=== PATIENT | male | born 1960 | race Caucasian/White ===

== ENCOUNTER → 2017-04-19 | Outpatient (CLI) | payer BC ==
[2017-04-19 08:11] LABS: CH 30.7; CHCM 33.3; HCT 50.9 % (39.0-53.0); HDW 2.69; HGB 16.7 gm/dL (13.0-17.5); MCH 30.4 pg (25.0-35.0); MCHC 32.8 g/dL (31.0-37.0); MCV 92.7 fL (80.0-100.0); Mean Platelet Volume 7.4; RBC 5.49 m/uL (4.30-5.90); RDW 12.5 % (11.5-15.5); WBC 4.4 k/uL (3.8-10.6)
[2017-04-19 08:20] LABS: Anion Gap 9 mmol/L; Blood Urea Nitrogen 14 mg/dL (9-20); Calcium 9.5 mg/dL (8.4-10.2); Carbon Dioxide 28 mmol/L (22-30); Chloride 106 mmol/L (98-107); Glucose 95 mg/dL (74-99); Non-African American GFR(MDRD) >60 (>60 ml/min/1.73 sqM); Potassium 4.4 mmol/L (3.5-5.1); Sodium 143 mmol/L (137-145)
== END | disposition home or self-care (01) ==
LOC: LABWHC1 07:04
PROVIDERS: ATTEND Internal Medicine Clinical Cardiac Electrophysiology
DX: I48.0 Paroxysmal atrial fibrillation (principal)
CPT/HCPCS: 36415; 80048; 85027

== ENCOUNTER 2017-04-26 06:17 | Observation (INO) | payer BC ==
[2017-04-22 11:18] VITALS: BMI 29.0
[~2017-04-26 06:17] MED LIST: LACTATED RINGERS 1,000 ML IV SCH; ONDANSETRON 4 MG/2 ML VIAL IVP PRN; SODIUM CHLORIDE 0.9% 1,000 ML IV SCH
[2017-04-26] MEDS ORDERED: HEPARIN SODIUM,PORCINE/D5W PMX 25,000 UNIT in DEXTROSE/WATER 1 500ML.BAG IV ONE (07:30)
[2017-04-26] MEDS ORDERED: LIDOCAINE 1% INJ 10MG/ML (20 ML MDV) ONE (08:05)
[2017-04-26] MEDS ORDERED: ROCURONIUM BROMIDE 10 MG/ML 10 ML VIAL IV ONE (08:05)
[2017-04-26] MEDS ORDERED: HEPARIN SODIUM,PORCINE 10,000 UNIT/ML 1 ML VIAL ONE (08:05)
[2017-04-26] MEDS ORDERED: PROPOFOL 10 MG/ML 20 ML VIAL IV ONE (08:05)
[2017-04-26] MEDS ORDERED: ISOPROTERENOL 250 MCG/1.25 ML SYR IV ONE (08:05)
[2017-04-26] MEDS ORDERED: PROTAMINE SULFATE 10 MG/ML 5 ML VIAL IV ONE ×2 (08:05→13:12)
[2017-04-26] MEDS ORDERED: PHENYLEPHRINE-0.9% NACL SYG 1 MG/10 ML SYRINGE ONE (08:05)
[2017-04-26] MEDS ORDERED: MIDAZOLAM 2 MG/2 ML VIAL ONE (08:05)
[2017-04-26] MEDS ORDERED: HYDROmorphone (PF) 1 MG/ML ONE (08:05)
[2017-04-26] MEDS ORDERED: SUCCINYLCHOLINE CHLORIDE 100 MG/5 ML SYR IV ONE (08:05)
[2017-04-26] MEDS ORDERED: fentaNYL (PF) 50 MCG/ML 2 ML AMP ONE (08:05)
[2017-04-26] MEDS ORDERED: FUROSEMIDE 10 MG/ML 2 ML VIAL ONE (08:05)
[2017-04-26] MEDS ORDERED: LIDOCAINE 2% INJ 20 MG/ML SQ ONE (08:46)
[2017-04-26] MEDS ORDERED: HEPARIN SODIUM (1,000 UNIT/ML) 1,000 UNIT in SODIUM CHLORIDE 0.9% 1,000 ML IRRIGATION ONE (08:49)
[2017-04-26] MEDS ORDERED: SODIUM CHLORIDE 0.9% IRRIGATION ONE (12:50)
[2017-04-26] MEDS ORDERED: HEPARIN SODIUM IRRIGATION ONE (12:50)
[2017-04-26] MEDS ORDERED: SODIUM CHLORIDE 0.9% 500 ML IV ONE (13:04)
[2017-04-26] MEDS ORDERED: ACETAMINOPHEN IV (For NPO) 1,000 MG in EMPTY BAG 1 BAG IVPB ONE (13:13)
[2017-04-26] MEDS ORDERED: ACETAMINOPHEN TAB 325 MG TAB PO PRN (13:13)
[2017-04-26] MEDS ORDERED: SODIUM CHLORIDE 0.9% 250 ML IV ONE (13:58)
--- NOTE | 2017-04-26 14:11 | P.PCN ---
Preoperative Diagnosis: Successful termination of irregular atrial tachycardia/atrial fibrillation with a focal ablation in the ridge in between the left atrial appendage and the left- sided pulmonary veins PVI at an anterolateral level Atrial flutter ablation Procedures performed Hemodynamic monitoring and sampling via right femoral artery Intracardiac echocardiography Comprehensive diagnostic EP study with arrhythmia induction CS pacing and recording Programmed stimulation following Isuprel Intracardiac echocardiography Transseptal catheterization Pulmonary vein isolation 29675 Ablation of the right-sided atrial site, atrial flutter ablation, 58603 Ablation of discrete arrhythmia focus, 93634 Plan Continue Xarelto for 3 months
[2017-04-26] MEDS ORDERED: ACETAMINOPHEN IV (For NPO) 1,000 MG/100 ML VIAL IVPB ONE (14:34)
--- NOTE | 2017-04-26 14:53 | CE ---
CARDIAC ELECTROPHYSIOLOGY REPORT This is a 56-year-old, male patient, who has had an A. fib ablation and atrial flutter ablation greater than 5 years back. He came back with symptomatic atrial fibrillation with RVR and was started on verapamil. He is anticoagulated and then brought in for an AP study and ablation. Patient is brought to the EP lab in a fasting state. Written informed consent was obtained prior to the procedure. The procedure was performed under general anesthesia. Right and left groins were prepped and draped as per protocol. A 5-Algerian arterial sheath was placed in the femoral artery for hemodynamic monitoring and sampling. Heparin was started and the ECG is maintained above 300. Venous sheaths were placed in the right and left femoral veins and via these, diagnostic catheters were placed in the heart (high right atrial area. HIS bundle area, RV and coronary sinus.) The baseline measurements were as follows: sinus cycle length 728 milliseconds, NJ interval 136 milliseconds,. QRS 105 milliseconds, QT interval 393 milliseconds. The AH interval at baseline is 74 milliseconds, HV interval 48 milliseconds. Sinus node recovery times of 600, 500 and 400 milliseconds were 1575, 1514 and 1333 milliseconds. Corresponding corrected sinus node recovery times were mildly prolonged at a paced cycle length of 600 milliseconds. AV node Wenckebach block 380 milliseconds, VA Wenckebach block 510 milliseconds, ventricular VAERP 500/420 milliseconds/ AV node ERP 500/840 milliseconds, Atrial ERP 500/210 milliseconds. Burst stimulation of the coronary sinus 1350 milliseconds, started 250 milliseconds. No atrial fibrillation induced. Isuprel was started and burst stimulation was performed. The coronary sinus doing with catheter movements, atrial fibrillation was induced. This was a fairly organized atrial fibrillation, cycle length of about 190 to 200 milliseconds, similar to his clinical tachycardia which was also fairly organized atrial fibrillation with a cycle length of 200 milliseconds on a 12-lead ECG. First mapping of the intracardiac cardiography was performed and the left atrial mapping in the pulmonary vein map is made. Following that, a voltage superimposed on this anatomic path to clear to full three-dimensional left atrial and pulmonary vein structures. Deeper portions of the pulmonary veins had proven exit block along the antra. Recovery was noted in the following sites: 1. Anterior chelsea of the right-sided veins. 2. Posterior chelsea of the left-sided veins and along the anterior ridge, somewhat outside the pulmonary vein line between the appendage and the left-sided veins. Ablation was performed along the anterior chelsea and very fractionated electrograms are noted in anterior septum and RF ablation performed along the sites. Next, ablation is performed along the anterior chelsea of the left-sided veins right at the level of the chelsea in the ridge outside the pulmonary veins. Atrial fibrillation was terminated. This was in the ridge between the left atrial appendage and the left-sided veins. Following that, the veins were interrogated with pacing and RF ablation was performed along the anterior margin of the left-sided veins as well as in the carinal region and slightly below it also for the for the left-sided veins. The anterior veins interrogated and RF ablation was completed along the anterior antrum of the right-sided veins. No further atrial fibrillation was induced. Atrial flutter line was interrogated and the isthmus conduction and RF ablation was performed along the previous atrial flutter line and differential pacing was then bidirectional block was proven with differential pacing thereafter. A complete line of block was made along the cavotricuspid isthmus. Patient tolerated the procedure well without any acute complications. Intracardiac echocardiography revealed no evidence for any pericardial effusion. LV function was normal. Heparin was discontinued. All catheters were removed. Heparin was reversed and patient was transferred to telemetry. RESULT: 1. Diagnostic EP study revealing inducible atrial fibrillation with a focal area in the ridge between the left atrial appendage and the left-sided veins. outside both structures and RF ablation at this site resulted in termination of the tachycardia. 2. Isolation of the pulmonary veins at an antral level (right-sided veins anteriorly along the chelsea, left-sided veins posteriorly along the chelsea and the left-sided veins anteriorly off as well as well on the roof of the left superior pulmonary vein. 3. Atrial flutter ablation. PLAN: Continue Xarelto for 3 months. Discontinue verapamil. This is a successful procedure with induction of the clinical arrhythmia and termination of the arrhythmia with a focal ablation, followed by antral isolation of the pulmonary veins and atrial flutter ablation. MMODL / IJN: [id number] /
--- NOTE | 2017-04-26 14:59 | LTR ---
DATE OF SERVICE: 04/26/2017 RE: Silvino Carpenter Dear Phan; I had the pleasure of seeing Silvino Carpenter Jr. in electrophysiology followup. As you know, Silvino had undergone A. fib ablation almost 5 years back and he came in with recurrence of atrial fibrillation. Today, he underwent ablation of the atrial fibrillation. He actually had a focal atrial tachycardia (irregular) in the ridge between the pulmonary veins and the left atrial appendage. Following that, pulmonary vein isolation was performed. Segmentally in the areas of recovery as well as redo atrial flutter ablation areas of recovery. However his clinical arrhythmia was terminated, most importantly his clinical arrhythmia was terminated during the procedure. Hopefully, this will result once again in long-term success. He will continue Xarelto for a minimum of 3 months. Thank you for entrusting me with the care of your patient. Warm regards. Sincerely, MD LARRY Davis / TONI: [id number] /
[2017-04-26] MEDS ORDERED: ONDANSETRON 4 MG/2 ML VIAL IVP PRN (18:19)
[2017-04-26] MEDS: RIVAROXABAN 10 MG TAB PO SCH (18:27)
[2017-04-26] MEDS ORDERED: TEMAZEPAM 30 MG CAP PO PRN (20:23)
[2017-04-27 06:22] LABS: Anion Gap 5 mmol/L; Blood Urea Nitrogen 12 mg/dL (9-20); Calcium 9.2 mg/dL (8.4-10.2); Carbon Dioxide 30 mmol/L (22-30); Chloride 106 mmol/L (98-107); Glucose 109 mg/dL (74-99); Non-African American GFR(MDRD) >60 (>60 ml/min/1.73 sqM); Potassium 4.1 mmol/L (3.5-5.1); Sodium 141 mmol/L (137-145)
--- NOTE | 2017-04-27 08:38 | P.DS ---
Providers Date of admission: 04/26/17 20:23 Attending physician: Dallas Tracy Primary care physician: Severo [facility] Course: Patient is lying in bed comfortable. Last night he felt very jittery and funny after receiving Zofran but this morning he feels a lot better. He denies any chest discomfort no dizziness lightheadedness no palpitations. Twelve-lead ECG shows sinus rhythm with PACs On examination blood pressure is 97.4F pulse rate is in the 50s blood pressure 104/58 mmHg respirations are normal Heart sounds S1 and S2 are normal Sounds are clear no rhonchi no crackles Abdomen is soft nontender Extremities warm no edema Groins have healed well no hematoma no bruising Impression Paroxysmal symptomatic atrial fibrillation Status post successful ablation in termination of atrial fibrillation in the range in between the left atrial appendage and left-sided pulmonary veins Also, PVI and atrial flutter ablation Plan Continue Xarelto Discontinue verapamil Ambulate in the hallways today Oral fluids ad santana. Discharge home by 6 PM if stable and follow-up with Dr. An in 1-2 weeks Patient Condition at Discharge: Stable Plan - Discharge Summary Discharge Rx Participant: Yes New Discharge Prescriptions: Discontinued Verapamil HCl [Verelan Pm] 100 mg PO DAILY No Action Cholecalciferol [Vitamin D3] 2,000 unit PO DAILY Vitamin B Complex 1 cap PO DAILY Folic Acid 0.4 mg PO DAILY Aspirin [Adult Low Dose Aspirin EC] 81 mg PO DAILY Rosuvastatin [Crestor] 10 mg PO DAILY Rivaroxaban [Xarelto] 20 mg PO DAILY [place]-3 Fatty Acids/Fish Oil [Fish Oil 1,000 mg Softgel] 1 cap PO DAILY Multivitamin/Iron/Folic Acid [Centrum Adults Tablet] 1 tab PO DAILY Magnesium 200 mg PO DAILY Ubidecarenone [Co Q-10] 200 mg PO DAILY Discharge Medication List Aspirin [Adult Low Dose Aspirin EC] 81 mg PO DAILY 04/22/17 [History] Cholecalciferol [Vitamin D3] 2,000 unit PO DAILY 04/22/17 [History] Folic Acid 0.4 mg PO DAILY 04/22/17 [History] Magnesium 200 mg PO DAILY 04/22/17 [History] Multivitamin/Iron/Folic Acid [Centrum Adults Tablet] 1 tab PO DAILY 04/22/17 [ History] [place]-3 Fatty Acids/Fish Oil [Fish Oil 1,000 mg Softgel] 1 cap PO DAILY [History] Rivaroxaban [Xarelto] 20 mg PO DAILY 04/22/17 [History] Rosuvastatin [Crestor] 10 mg PO DAILY 04/22/17 [History] Vitamin B Complex 1 cap PO DAILY 04/22/17 [History] Ubidecarenone [Co Q-10] 200 mg PO DAILY 04/26/17 [History] Follow up Appointment(s)/Referral(s): Dallas Tracy MD [STAFF PHYSICIAN] - 05/11/17 3:00 pm Patient Instructions/Handouts: Cardiac Ablation (DC), Safe Use of Anticoagulants (DC) Activity/Diet/Wound Care/Special Instructions: Post EP study - Ablation instructions 1. Keep access sites dry for 2 days. 2. No heavy lifting or straining for 2 days. 3. Avoid bending the hips repeatedly for 2 days. 4. You may go up and down stairs slowly Call if the following is noted 1. Bleeding, increasing swelling or pain at the access sites. 2. Increasing chest discomfort, especially upon taking a deep breath. 3. Increasing shortness of breath, at rest or with exertion. 4. Undue cough / phlegm 5. Difficulty or pain while swallowing. 6. Pain or change in color in the extremities. 7. Fever, chills, rigors. 8. Increasing headache or neurologic symptoms. 9. Dizziness, fainting, palpitations Continue Xarelto for at least 3 months. Stop verapamil. Follow with Dr. An in 1-2 weeks Discharge Disposition: HOME SELF-CARE
[2017-04-27] MEDS ORDERED: ATORVASTATIN 20 MG TAB PO SCH (09:00)
[2017-04-27] MEDS ORDERED: ASPIRIN 81 MG PO SCH (09:00)
[2017-04-27 11:39] VITALS: TEMP 97.9
[2017-04-27] MEDS: RIVAROXABAN 10 MG TAB PO SCH (16:47)
[2017-04-27 17:27] VITALS: BP 113/72; PULSE 64; RESP 18
== END 2017-04-27 18:08 | disposition home or self-care (01) ==
LOC: CATHEP 06:17 → 6SEL 13:05 → CATHEP 20:23 → 6SEL 20:23
PROVIDERS: ADMIT Internal Medicine Clinical Cardiac Electrophysiology; ATTEND Internal Medicine Clinical Cardiac Electrophysiology
DX: I48.0 Paroxysmal atrial fibrillation (principal); I48.92 Unspecified atrial flutter; I10 Essential (primary) hypertension; E78.5 Hyperlipidemia, unspecified; Z79.82 Long term (current) use of aspirin; Z79.01 Long term (current) use of anticoagulants; Z79.899 Other long term (current) drug therapy; Z86.79 Personal history of other diseases of the circulatory system
CPT/HCPCS: 93623; 93662; 93613; 93655; 93656; 85347; 80048; G0378 ×2; C1769 ×4; C1894 ×3; C1730 ×3; C1759; C1893; C1732; J2001 ×2; J2250; J2720; J1644 ×3; J1940; J2405; J3010; J1170; J0131; J2370; J0330; J2704

== ENCOUNTER 2017-04-29 06:04 | Emergency (ER) | payer BC ==
--- NOTE | 2017-04-29 06:33 | ED ---
General Adult HPI - General Source: patient, RN notes reviewed, old records reviewed Mode of arrival: ambulatory Limitations: no limitations <Tristin Bishop - Last Filed: 04/29/17 06:32> <Rupesh Mills - Last Filed: 04/29/17 08:52> - General Chief complaint: Chest Pain Stated complaint: Chest Pain Time Seen by Provider: 04/29/17 06:22 - History of Present Illness Initial comments: This is a 48-year-old male to the ER for evaluation of chest pain started. Patient has history of high cholesterol atrial fibrillation. Patient states he has worsening pain with exertion worsening pain with activity. Symptoms since Tuesday episodic but now worse. Patient denies fever denies nausea vomiting denies cough or congestion. No travel history no sick contacts. (Tristin Bishop) - Related Data Home Medications Medication Instructions Recorded Confirmed Aspirin [Adult Low Dose Aspirin EC] 81 mg PO DAILY 04/22/17 04/29/17 Cholecalciferol [Vitamin D3] 2,000 unit PO DAILY 04/22/17 04/29/17 Folic Acid 0.4 mg PO DAILY 04/22/17 04/29/17 Magnesium 200 mg PO DAILY 04/22/17 04/29/17 Multivitamin/Iron/Folic Acid 1 tab PO DAILY 04/22/17 04/29/17 [Centrum Adults Tablet] [place]-3 Fatty Acids/Fish Oil [Fish 1 cap PO DAILY 04/22/17 04/29/17 Oil 1,000 mg Softgel] Rivaroxaban [Xarelto] 20 mg PO DAILY 04/22/17 04/29/17 Rosuvastatin [Crestor] 10 mg PO DAILY 04/22/17 04/29/17 Vitamin B Complex 1 cap PO DAILY 04/22/17 04/29/17 Ubidecarenone [Co Q-10] 200 mg PO DAILY 04/26/17 04/29/17 Previous Rx's Medication Instructions Recorded Colchicine [Colcrys] 0.6 mg PO BID #6 tablet 04/29/17 Famotidine [Pepcid] 20 mg PO DAILY #30 tablet 04/29/17 Allergies Allergy/AdvReac Type Severity Reaction Status Date / Time No Known Allergies Allergy Verified 04/29/17 07:44 Review of Systems ROS Other: All systems not noted in ROS Statement are negative. <Tyron Bishopophpolina Barber - Last Filed: 04/29/17 06:32> ROS Other: All systems not noted in ROS Statement are negative. <Rupesh Mills - Last Filed: 04/29/17 08:52> ROS Statement: Those systems with pertinent positive or pertinent negative responses have been documented in the HPI. Past Medical History Past Medical History: Atrial Fibrillation, Hyperlipidemia History of Any Multi-Drug Resistant Organisms: None Reported Past Surgical History: Cardiac Ablation, Hernia Repair Past Psychological History: No Psychological Hx Reported Smoking Status: Never smoker Past Alcohol Use History: Occasional Past Drug Use History: None Reported <Tristin Bishop - Last Filed: 04/29/17 06:32> General Exam Limitations: no limitations General appearance: alert, in no apparent distress Head exam: Present: atraumatic, normocephalic, normal inspection Eye exam: Present: normal appearance, PERRL, EOMI. Absent: scleral icterus, conjunctival injection, periorbital swelling ENT exam: Present: normal exam, mucous membranes moist Neck exam: Present: normal inspection. Absent: tenderness, meningismus, lymphadenopathy Respiratory exam: Present: normal lung sounds bilaterally. Absent: respiratory distress, wheezes, rales, rhonchi, stridor Cardiovascular Exam: Present: regular rate, normal rhythm, normal heart sounds. Absent: systolic murmur, diastolic murmur, rubs, gallop, clicks GI/Abdominal exam: Present: soft, normal bowel sounds. Absent: distended, tenderness, guarding, rebound, rigid Extremities exam: Present: normal inspection, full ROM, normal capillary refill. Absent: tenderness, pedal edema, joint swelling, calf tenderness Back exam: Present: normal inspection Neurological exam: Present: alert, oriented X3, CN II-XII intact Psychiatric exam: Present: normal affect, normal mood Skin exam: Present: warm, dry, intact, normal color. Absent: rash <Tristin Bishop - Last Filed: 04/29/17 06:32> Vital Signs 04/29/17 04/29/17 06:06 07:46 Temperature 98.9 F Pulse Rate 76 63 Respiratory 16 15 Rate Blood Pressure 153/78 122/63 O2 Sat by Pulse 97 95 Oximetry EKG Findings - EKG Comments: EKG Findings:: EKG has sinus rhythm rate of 77, CA 152, QRS 100, QTc 466 <Tristin Bishop - Last Filed: 04/29/17 06:32> Medical Decision Making <Tristin Bishop - Last Filed: 04/29/17 06:32> - Lab Data Result diagrams: 04/29/17 06:00 04/29/17 06:00 <Rupesh Mills - Last Filed: 04/29/17 08:52> - Medical Decision Making 48-year-old male presenting with chest discomfort after cardiac ablation. Patient has a normal sinus rhythm. EKG is nonischemic. Patient is symptom- free at the time my evaluation. Patient was signed out to me awaiting laboratory studies. Dr. Dasilva within normal limits. Mild elevation in troponin secondary to ablation. Case is discussed with Dr. Tracy, he feels patient is stable for discharge at this time. Patient has an appointment and will follow up as an outpatient. He is prescribed colchicine and Pepcid. (Rupesh Mills) - Lab Data Lab Results 04/29/17 04/29/17 04/29/17 Range/Units 06:00 06:00 06:00 WBC 9.7 (3.8-10.6) k/uL RBC 5.45 (4.30-5.90) m/uL Hgb 16.5 (13.0-17.5) gm/dL Hct 49.4 (39.0-53.0) % MCV 90.6 (80.0-100.0) fL MCH 30.3 (25.0-35.0) pg MCHC 33.4 (31.0-37.0) g/dL RDW 13.5 (11.5-15.5) % Plt Count 201 (150-450) k/uL Neutrophils % 82 % Lymphocytes % 10 % Monocytes % 6 % Eosinophils % 2 % Basophils % 0 % Neutrophils # 7.9 H (1.3-7.7) k/uL Lymphocytes # 1.0 (1.0-4.8) k/uL Monocytes # 0.6 (0-1.0) k/uL Eosinophils # 0.2 (0-0.7) k/uL Basophils # 0.0 (0-0.2) k/uL PT (9.0-12.0) sec INR (<1.2) APTT (22.0-30.0) sec Sodium 141 (137-145) mmol/L Potassium 4.3 (3.5-5.1) mmol/L Chloride 107 (98-107) mmol/L Carbon Dioxide 24 (22-30) mmol/L Anion Gap 10 mmol/L BUN 16 (9-20) mg/dL Creatinine 1.00 (0.66-1.25) mg/dL Est GFR (MDRD) Af Amer >60 (>60 ml/min/1.73 sqM) Est GFR (MDRD) Non-Af >60 (>60 ml/min/1.73 sqM) Glucose 104 H (74-99) mg/dL Calcium 9.3 (8.4-10.2) mg/dL Magnesium 1.7 (1.6-2.3) mg/dL Total Bilirubin 0.8 (0.2-1.3) mg/dL AST 28 (17-59) U/L ALT 37 (21-72) U/L Alkaline Phosphatase 37 L (38-126) U/L Total Creatine Kinase 49 L (55-170) U/L CK-MB (CK-2) 0.6 (0.0-2.4) ng/mL CK-MB (CK-2) Rel Index 1.2 Troponin I 0.257 H* (0.000-0.034) ng/mL Total Protein 6.7 (6.3-8.2) g/dL Albumin 4.1 (3.5-5.0) g/dL Lipase 32 (23-300) U/L 04/29/17 Range/Units 06:00 WBC (3.8-10.6) k/uL RBC (4.30-5.90) m/uL Hgb (13.0-17.5) gm/dL Hct (39.0-53.0) % MCV (80.0-100.0) fL MCH (25.0-35.0) pg MCHC (31.0-37.0) g/dL RDW (11.5-15.5) % Plt Count (150-450) k/uL Neutrophils % % Lymphocytes % % Monocytes % % Eosinophils % % Basophils % % Neutrophils # (1.3-7.7) k/uL Lymphocytes # (1.0-4.8) k/uL Monocytes # (0-1.0) k/uL Eosinophils # (0-0.7) k/uL Basophils # (0-0.2) k/uL PT 11.5 (9.0-12.0) sec INR 1.2 H (<1.2) APTT 27.2 (22.0-30.0) sec Sodium (137-145) mmol/L Potassium (3.5-5.1) mmol/L Chloride (98-107) mmol/L Carbon Dioxide (22-30) mmol/L Anion Gap mmol/L BUN (9-20) mg/dL Creatinine (0.66-1.25) mg/dL Est GFR (MDRD) Af Amer (>60 ml/min/1.73 sqM) Est GFR (MDRD) Non-Af (>60 ml/min/1.73 sqM) Glucose (74-99) mg/dL Calcium (8.4-10.2) mg/dL Magnesium (1.6-2.3) mg/dL Total Bilirubin (0.2-1.3) mg/dL AST (17-59) U/L ALT (21-72) U/L Alkaline Phosphatase (38-126) U/L Total Creatine Kinase (55-170) U/L CK-MB (CK-2) (0.0-2.4) ng/mL CK-MB (CK-2) Rel Index Troponin I (0.000-0.034) ng/mL Total Protein (6.3-8.2) g/dL Albumin (3.5-5.0) g/dL Lipase (23-300) U/L Disposition <Tristin Bishop - Last Filed: 04/29/17 06:32> Time of Disposition: 08:51 <Rupesh Mills - Last Filed: 04/29/17 08:52> Clinical Impression: Chest pain Disposition: HOME SELF-CARE Condition: Good Instructions: Chest Pain (ED) Prescriptions: Colchicine [Colcrys] 0.6 mg PO BID #6 tablet Famotidine [Pepcid] 20 mg PO DAILY #30 tablet Referrals: Severo Kong MD [Primary Care Provider] - 1-2 days Dallas Tracy MD [STAFF PHYSICIAN] - 1-2 days
[2017-04-29 06:41] LABS: Basophils % (A) 0 %; CH 30.7; CHCM 34.1; Eosinophils # (A) 0.2 k/uL (0-0.7); Eosinophils % (A) 2 %; HCT 49.4 % (39.0-53.0); HDW 2.53; HGB 16.5 gm/dL (13.0-17.5); Luc # (Auto) 0.07; Luc % (Auto) 1; Lymphocytes % (A) 10 %; MCH 30.3 pg (25.0-35.0); MCHC 33.4 g/dL (31.0-37.0); MCV 90.6 fL (80.0-100.0); Mean Platelet Volume 7.8; Monocytes # (A) 0.6 k/uL (0-1.0); Monocytes % (A) 6 %; Neutrophils # (A) 7.9 k/uL (1.3-7.7); Neutrophils % (A) 82 %; RBC 5.45 m/uL (4.30-5.90); RDW 13.5 % (11.5-15.5); WBC 9.7 k/uL (3.8-10.6); WBC (Perox) 9.51
[2017-04-29 06:43] LABS: INR 1.2 (<1.2); Partial Thromboplastin Time 27.2 sec (22.0-30.0); Prothrombin Time 11.5 sec (9.0-12.0)
[2017-04-29 06:56] LABS: ALT 37 U/L (21-72); AST 28 U/L (17-59); Alkaline Phosphatase 37 U/L (38-126); Anion Gap 10 mmol/L; Blood Urea Nitrogen 16 mg/dL (9-20); Calcium 9.3 mg/dL (8.4-10.2); Carbon Dioxide 24 mmol/L (22-30); Chloride 107 mmol/L (98-107); Glucose 104 mg/dL (74-99); Magnesium 1.7 mg/dL (1.6-2.3); Non-African American GFR(MDRD) >60 (>60 ml/min/1.73 sqM); Potassium 4.3 mmol/L (3.5-5.1); Sodium 141 mmol/L (137-145); Total Bilirubin 0.8 mg/dL (0.2-1.3); Total Protein 6.7 g/dL (6.3-8.2)
--- NOTE | 2017-04-29 06:56 | XR ---
EXAM: XR Chest, 2 Views. CLINICAL HISTORY: Reason: Chest Pain TECHNIQUE: Frontal and lateral views of the chest. COMPARISON: No relevant prior studies available. FINDINGS: Lungs: Unremarkable. No consolidation. Pleural spaces: Unremarkable. No pneumothorax. Heart: Unremarkable. No cardiomegaly. Mediastinum: Unremarkable. Bones: Unremarkable. No acute fracture. IMPRESSION: No acute findings in the chest.
[2017-04-29 07:18] LABS: Creatine Kinase MB 0.6 ng/mL (0.0-2.4)
[2017-04-29 07:24] LABS: Troponin I 0.257 ng/mL (0.000-0.034)
[2017-04-29 09:07] VITALS: BP 142/91; PULSE 71; RESP 16; TEMP 98
== END 2017-04-29 09:04 | disposition home or self-care (01) ==
LOC: EC 06:04
DX: R07.89 Other chest pain (principal); I48.91 Unspecified atrial fibrillation; E78.5 Hyperlipidemia, unspecified; Z79.01 Long term (current) use of anticoagulants; Z79.82 Long term (current) use of aspirin; Z79.899 Other long term (current) drug therapy
CPT/HCPCS: 36415; 71020; 80053; 82550; 82553; 83690; 83735; 84484; 85025; 85610; 85730; 93005; 99285

== ENCOUNTER 2018-12-04 07:57 | Emergency (ER) | payer BC ==
[2018-12-04 08:02] VITALS: TEMP 98.1
[2018-12-04] MEDS ORDERED: DIAZEPAM 5 MG/ML 2 ML INJ IVP STA (08:17)
[2018-12-04] MEDS ORDERED: MECLIZINE 25 MG TAB PO STA (08:17)
--- NOTE | 2018-12-04 08:24 | ED ---
General Adult HPI - General Chief complaint: Dizziness Stated complaint: Dizziness/nausea Time Seen by Provider: 12/04/18 08:00 Source: patient, RN notes reviewed Mode of arrival: wheelchair Limitations: no limitations - History of Present Illness Initial comments: This is an 58-year-old male who presents emergency Department complaining of dizziness. Patient states he rolled over but this morning when he sat up and everything was moving and spinning. Patient states became nauseated but did not vomit. Patient states he decided to get up and move around and symptoms persisted so he decided come the emergency department. Patient states he has a history of A. fib per patient states he has no history of vertigo or similar dizziness per patient states she has chronic tinnitus. Patient denies any increase in the tinnitus or change in the tinnitus. Patient denies any change in his hearing recently. Patient denies any chest pain or palpitations. Patient denies shortness of breath or difficulty breathing. Patient denies abdominal pain. Patient denies any recent fever chills or cough. - Related Data Home Medications Medication Instructions Recorded Confirmed Aspirin [Adult Low Dose Aspirin EC] 81 mg PO HS 04/22/17 12/04/18 Rosuvastatin [Crestor] 10 mg PO HS 04/22/17 12/04/18 Verapamil HCl [Verelan Pm] 100 mg PO HS 12/04/18 12/04/18 Previous Rx's Medication Instructions Recorded Meclizine [Antivert] 25 mg PO TID #20 tab 12/04/18 Allergies Allergy/AdvReac Type Severity Reaction Status Date / Time No Known Allergies Allergy Verified 12/04/18 08:40 Review of Systems ROS Statement: Those systems with pertinent positive or pertinent negative responses have been documented in the HPI. ROS Other: All systems not noted in ROS Statement are negative. Past Medical History Past Medical History: Atrial Fibrillation, Hyperlipidemia History of Any Multi-Drug Resistant Organisms: None Reported Past Surgical History: Cardiac Ablation, Hernia Repair Past Psychological History: No Psychological Hx Reported Smoking Status: Never smoker Past Alcohol Use History: Occasional Past Drug Use History: None Reported General Exam - General Exam Comments Initial Comments: GENERAL: Patient is well-developed and well-nourished. Patient is nontoxic and well- hydrated and is in mild distress. ENT: Neck is soft and supple. No significant lymphadenopathy is noted. Oropharynx is clear. Moist mucous membranes. EYES: The sclera were anicteric and conjunctiva were pink and moist. Extraocular movements were intact and pupils were equal round and reactive to light. Eyelids were unremarkable. PULMONARY: Unlabored respirations. Good breath sounds bilaterally. No audible rales rhonchi or wheezing was noted. CARDIOVASCULAR: There is a regular rate and rhythm without any murmurs gallops or rubs. ABDOMEN: Soft and nontender with normal bowel sounds. No palpable organomegaly was noted. There is no palpable pulsatile mass. SKIN: Skin is clear with no lesions or rashes and otherwise unremarkable. NEUROLOGIC: Patient is alert and oriented x3. Cranial nerves II through XII are grossly intact. Motor and sensory are also intact. Normal speech, volume and content. Symmetrical smile. Finger to nose testing is normal. MUSCULOSKELETAL: Normal extremities with adequate strength and full range of motion. LYMPHATICS: No significant lymphadenopathy is noted PSYCHIATRIC: Normal psychiatric evaluation. Limitations: no limitations Course Vital Signs 12/04/18 12/04/18 12/04/18 08:00 08:30 09:00 Temperature 98.1 F Pulse Rate 50 L 52 L 47 L Respiratory 16 10 L Rate Blood Pressure 156/74 143/81 129/79 O2 Sat by Pulse 97 94 L Oximetry Medical Decision Making - Medical Decision Making EKG shows sinus bradycardia 54 bpm VA interval is 172 QRS is 102 QT intervals 450 QTC is 426. EKG shows no ST segment elevation or depression. CT of the brain shows no acute abnormality. Chest x-ray shows no acute normalities. I will begin to reevaluate the patient received his medication he was feeling somewhat better. Patient has no other symptoms at this time other than slight dizziness. - Lab Data Result diagrams: 12/04/18 08:28 12/04/18 08:28 Lab Results 12/04/18 12/04/18 12/04/18 Range/Units 08:28 08:28 08:28 WBC 4.1 (3.8-10.6) k/uL RBC 5.24 (4.30-5.90) m/uL Hgb 15.6 (13.0-17.5) gm/dL Hct 46.7 (39.0-53.0) % MCV 89.0 (80.0-100.0) fL MCH 29.7 (25.0-35.0) pg MCHC 33.4 (31.0-37.0) g/dL RDW 12.9 (11.5-15.5) % Plt Count 205 (150-450) k/uL Neutrophils % 69 % Lymphocytes % 20 % Monocytes % 7 % Eosinophils % 3 % Basophils % 0 % Neutrophils # 2.9 (1.3-7.7) k/uL Lymphocytes # 0.8 L (1.0-4.8) k/uL Monocytes # 0.3 (0-1.0) k/uL Eosinophils # 0.1 (0-0.7) k/uL Basophils # 0.0 (0-0.2) k/uL PT 10.9 (9.0-12.0) sec INR 1.0 (<1.2) APTT 26.1 (22.0-30.0) sec Sodium 141 (137-145) mmol/L Potassium 4.2 (3.5-5.1) mmol/L Chloride 107 (98-107) mmol/L Carbon Dioxide 26 (22-30) mmol/L Anion Gap 8 mmol/L BUN 12 (9-20) mg/dL Creatinine 0.79 (0.66-1.25) mg/dL Est GFR (CKD-EPI)AfAm >90 (>60 ml/min/1.73 sqM) Est GFR (CKD-EPI)NonAf >90 (>60 ml/min/1.73 sqM) Glucose 107 H (74-99) mg/dL Calcium 9.4 (8.4-10.2) mg/dL Magnesium 1.9 (1.6-2.3) mg/dL Total Bilirubin 0.9 (0.2-1.3) mg/dL AST 18 (17-59) U/L ALT 21 (21-72) U/L Alkaline Phosphatase 34 L (38-126) U/L Troponin I (0.000-0.034) ng/mL Total Protein 6.4 (6.3-8.2) g/dL Albumin 4.2 (3.5-5.0) g/dL 12/04/18 Range/Units 08:28 WBC (3.8-10.6) k/uL RBC (4.30-5.90) m/uL Hgb (13.0-17.5) gm/dL Hct (39.0-53.0) % MCV (80.0-100.0) fL MCH (25.0-35.0) pg MCHC (31.0-37.0) g/dL RDW (11.5-15.5) % Plt Count (150-450) k/uL Neutrophils % % Lymphocytes % % Monocytes % % Eosinophils % % Basophils % % Neutrophils # (1.3-7.7) k/uL Lymphocytes # (1.0-4.8) k/uL Monocytes # (0-1.0) k/uL Eosinophils # (0-0.7) k/uL Basophils # (0-0.2) k/uL PT (9.0-12.0) sec INR (<1.2) APTT (22.0-30.0) sec Sodium (137-145) mmol/L Potassium (3.5-5.1) mmol/L Chloride (98-107) mmol/L Carbon Dioxide (22-30) mmol/L Anion Gap mmol/L BUN (9-20) mg/dL Creatinine (0.66-1.25) mg/dL Est GFR (CKD-EPI)AfAm (>60 ml/min/1.73 sqM) Est GFR (CKD-EPI)NonAf (>60 ml/min/1.73 sqM) Glucose (74-99) mg/dL Calcium (8.4-10.2) mg/dL Magnesium (1.6-2.3) mg/dL Total Bilirubin (0.2-1.3) mg/dL AST (17-59) U/L ALT (21-72) U/L Alkaline Phosphatase (38-126) U/L Troponin I <0.012 (0.000-0.034) ng/mL Total Protein (6.3-8.2) g/dL Albumin (3.5-5.0) g/dL Disposition Clinical Impression: Vertigo Disposition: HOME SELF-CARE Instructions (If sedation given, give patient instructions): Vertigo (ED) Prescriptions: Meclizine [Antivert] 25 mg PO TID #20 tab Is patient prescribed a controlled substance at d/c from ED?: No Referrals: Severo Kong MD [Primary Care Provider] - 1-2 days Time of Disposition: 09:25
[2018-12-04 08:38] LABS: Basophils % (A) 0 %; Eosinophils # (A) 0.1 k/uL (0-0.7); Eosinophils % (A) 3 %; HCT 46.7 % (39.0-53.0); HGB 15.6 gm/dL (13.0-17.5); Lymphocytes # (A) 0.8 k/uL (1.0-4.8); Lymphocytes % (A) 20 %; MCH 29.7 pg (25.0-35.0); MCHC 33.4 g/dL (31.0-37.0); Mean Platelet Volume 7.2; Monocytes # (A) 0.3 k/uL (0-1.0); Monocytes % (A) 7 %; Neutrophils # (A) 2.9 k/uL (1.3-7.7); Neutrophils % (A) 69 %; Platelet Count 205 k/uL (150-450); RBC 5.24 m/uL (4.30-5.90); RDW 12.9 % (11.5-15.5); WBC 4.1 k/uL (3.8-10.6)
[2018-12-04 08:46] VITALS: RESP 10
[2018-12-04 08:49] LABS: Partial Thromboplastin Time 26.1 sec (22.0-30.0); Prothrombin Time 10.9 sec (9.0-12.0)
[2018-12-04 08:54] LABS: ALT 21 U/L (21-72); AST 18 U/L (17-59); African American GFR (CKD) >90 (>60 ml/min/1.73 sqM); Albumin 4.2 g/dL (3.5-5.0); Alkaline Phosphatase 34 U/L (38-126); Anion Gap 8 mmol/L; Blood Urea Nitrogen 12 mg/dL (9-20); Calcium 9.4 mg/dL (8.4-10.2); Carbon Dioxide 26 mmol/L (22-30); Chloride 107 mmol/L (98-107); Glucose 107 mg/dL (74-99); Magnesium 1.9 mg/dL (1.6-2.3); Potassium 4.2 mmol/L (3.5-5.1); Sodium 141 mmol/L (137-145); Total Bilirubin 0.9 mg/dL (0.2-1.3); Total Protein 6.4 g/dL (6.3-8.2)
[2018-12-04 09:04] VITALS: BP 129/79; PULSE 47
--- NOTE | 2018-12-04 09:05 | CT ---
EXAMINATION TYPE: CT brain wo con DATE OF EXAM: 12/04/2018 COMPARISON: None HISTORY: 58-year-old male Dizziness. Nausea and Pain TECHNIQUE: Examination was done in axial plane without intravenous contrast. Coronal and sagittal r econstructions performed. CT DLP: 1099.4 mGycm Automated exposure control for dose reduction was used. FINDINGS: There is no evidence of acute intracranial hemorrhage, acute ischemic changes, mass, mass-effect, or extra-axial fluid collection. There is no effacement of cerebral sulci or basal subarachnoid cister ns. There is no hydrocephalus. There is no midline shift. Parra-white matter distinction is preserv ed. Small hypodensity left basal ganglia region. 1.6 cm polyp or mucosal retention cyst along the floor of right maxillary sinus. Orbits and globes ar e intact. Mastoid air cells well pneumatized. Small amount of cerumen in the left greater than right external auditory canals. IMPRESSION: Small hypodensity left basal ganglia suggests a remote lacunar infarct or prominent perivascular spac e. No acute intracranial abnormality seen.
--- NOTE | 2018-12-04 09:07 | XR ---
EXAMINATION TYPE: XR chest 2V DATE OF EXAM: 12/04/2018 COMPARISON: 04/29/2017 HISTORY: Dizziness with history of atrial fibrillation TECHNIQUE: Frontal and lateral views of the chest are obtained. FINDINGS: There is no focal air space opacity, pleural effusion, or pneumothorax seen. The cardiac silhouette size is enlarged but stable from the prior. The osseous structures are intact. Small ant erior osteophytes are present of the thoracic spine. IMPRESSION: Stable enlarged cardiomediastinal silhouette. No acute cardiopulmonary process.
== END 2018-12-04 09:46 | disposition home or self-care (01) ==
LOC: EC 07:57
DX: R42 Dizziness and giddiness (principal); R11.0 Nausea; R00.1 Bradycardia, unspecified; I48.91 Unspecified atrial fibrillation; E78.5 Hyperlipidemia, unspecified; Z79.82 Long term (current) use of aspirin; Z79.899 Other long term (current) drug therapy
CPT/HCPCS: 36415; 93005; 80053; 83735; 84484; 85025; 85610; 85730; 71046; 70450; 99284; 96374; J3360

== ENCOUNTER 2019-02-21 06:27 | Day surgery (SDC) | payer BC ==
[2019-02-16 12:55] VITALS: BMI 28.8
[~2019-02-21 06:27] MED LIST changes: +ALPRAZolam 0.25 MG TAB PO PRN; +ALPRAZolam 0.5 MG TAB PO PRN; +ASPIRIN 325 MG TAB PO STA; +ATORVASTATIN 80 MG TAB PO STA; -LACTATED RINGERS 1,000 ML IV SCH; +NITROGLYCERIN SL TABS 0.4 MG TAB SUBLINGUAL PRN; -ONDANSETRON 4 MG/2 ML VIAL IVP PRN; -SODIUM CHLORIDE 0.9% 1,000 ML IV SCH; +SODIUM CHLORIDE 0.9% 1,000 ML in EMPTY BAG 1 BAG IV ONE
[2019-02-21] MEDS ORDERED: SODIUM CHLORIDE 0.9% 1,000 ML IV ONE (07:05)
[2019-02-21 07:18] VITALS: RESP 16; TEMP 98
[2019-02-21] MEDS ORDERED: fentaNYL (PF) 50 MCG/ML 2 ML AMP ONE (07:30)
[2019-02-21] MEDS: MIDAZOLAM (PF) 2 MG/2 ML VIAL IV ONE ×2 (07:41→07:49)
[2019-02-21] MEDS ORDERED: LIDOCAINE 1% INJ 10MG/ML (20 ML MDV) SQ ONE (07:43)
[2019-02-21] MEDS ORDERED: fentaNYL (PF) 50 MCG/ML 2 ML AMP IV ONE (07:48)
[2019-02-21] MEDS ORDERED: METOPROLOL TARTRATE 5 MG/5 ML VIAL IVP ONE ×2 (07:50→07:52)
[2019-02-21] MEDS ORDERED: IOPAMIDOL-370 125ML BTL INJ ONE (08:03)
[2019-02-21] MEDS ORDERED: RX INFO: IV CONTRAST WAS GIVEN 1 EACH MISC MISCELLANE PRN (08:04)
[2019-02-21] MEDS ORDERED: FLECAINIDE 50 MG TAB PO STA (08:13)
[2019-02-21] MEDS ORDERED: SODIUM CHLORIDE 0.9% 1,000 ML IV SCH (08:15)
--- NOTE | 2019-02-21 08:49 | CC ---
CARDIAC CATHETERIZATION REPORT INDICATION: This is a 58-year-old gentleman with history of paroxysmal atrial fibrillation, status post prior ablation who presented to Dr. Tracy with symptoms of unstable angina and was referred to me for cardiac catheterization. The patient had been explained of risks, benefits and alternatives, understood and accepted. PROCEDURE NOTE: After obtaining informed consent, left heart catheterization and coronary angiogram were performed via the right femoral artery using standard Evelyn catheters. The patient tolerated the procedure well without any obvious immediate complications. The patient was in atrial fibrillation with poorly controlled ventricular rate prior to cardiac cath. When he first arrived for cardiac catheterization, he apparently was in sinus rhythm and went into atrial fibrillation prior to the procedure. I had to give him 5 mg of intravenous Lopressor to control his heart rate. At the end of the procedure, he remains in atrial fibrillation with controlled ventricular rate. He received moderate conscious sedation and total sedation time was 19 minutes. A femoral angiogram was performed and Angio-Seal was deployed for hemostasis. FINDINGS: 1. HEMODYNAMICS: Left ventricular end-diastolic pressure is 8 mm. There is no significant gradient across the aortic valve. 2. LEFT VENTRICULOGRAM: Left ventriculogram is not performed. 3. ANGIOGRAPHIC DATA: Left Main Coronary Artery: Left main coronary artery is a normal-sized vessel and is free of stenosis. It divides into left anterior descending coronary artery, ramus intermedius and a small circumflex coronary artery. LAD and its branches, ramus intermedius and circumflex are free of significant stenosis. Right coronary artery is a large dominant vessel and is free of significant disease. CONCLUSIONS: 1. Normal coronary arteries. 2. Normal left ventricular end-diastolic pressures. PLAN: Patient's chest pain is not related to underlying ischemic heart disease. It is possible that patient is having paroxysmal episodes of atrial fibrillation, which is the reason for his symptoms. The patient is currently not on anticoagulant and he had been having on and off episodes of atrial fibrillation since his ablation. He will probably benefit from another attempted ablation or being started on rhythm suppressive therapy. I am going to let his primary script girl who is an munitions factory worker to address these issues. MMODL / IJN: [id number] /
--- NOTE | 2019-02-21 08:55 | LTR ---
February 21, 2019 Re: Silvino Carpenter Dear Dr. Kong: I performed cardiac catheterization on Silvino Carpenter. A detailed catheterization note is enclosed for your records. In brief, the patient has normal coronary arteries and his chest discomfort is not related to ischemic heart disease. Thank you for giving me the privilege to participate in the care of this pleasant gentleman. Sincerely, MD LARRY Manning / TONI: [id number] /
[2019-02-21] MEDS ORDERED: METOPROLOL SUCCINATE (ER) 25 MG TAB.ER.24H PO STA (11:17)
[2019-02-21] MEDS ORDERED: DILTIAZEM DRIP BOLUS FROM BAG 1 MG SOLN IV ONE (12:48)
[2019-02-21] MEDS ORDERED: DILTIAZEM 125 MG in SODIUM CHLORIDE 0.9% 100 ML IV SCH (13:00)
[2019-02-21 15:52] VITALS: BP 112/77; PULSE 69
== END 2019-02-21 15:12 | disposition home or self-care (01) ==
LOC: CATHCVL 06:27
PROVIDERS: ATTEND Internal Medicine Cardiovascular Disease
DX: I20.0 Unstable angina (principal); I48.0 Paroxysmal atrial fibrillation; R06.02 Shortness of breath; I10 Essential (primary) hypertension; E78.5 Hyperlipidemia, unspecified; Z82.49 Family history of ischemic heart disease and other diseases of the circulatory system; Z79.82 Long term (current) use of aspirin; Z79.899 Other long term (current) drug therapy
CPT/HCPCS: 93458; C1760; C1894; C1769; J2001; J3010; Q9967; J2250

== ENCOUNTER 2019-02-21 17:22 | Observation (INO) | payer BC ==
[2019-02-21] MEDS ORDERED: SODIUM CHLORIDE 0.9% 1,000 ML IV STA (17:31)
[2019-02-21] MEDS ORDERED: DILTIAZEM DRIP BOLUS FROM BAG 1 MG SOLN IV ONE ×2 (17:31→19:14)
--- NOTE | 2019-02-21 17:37 | ED ---
Arrhythmia/Palpitations HPI - General Chief Complaint: Arrhythmia/Palpitations Stated Complaint: High Heart rate Time Seen by Provider: 02/21/19 17:30 Source: patient Mode of arrival: wheelchair Limitations: no limitations - History of Present Illness Initial Comments: This is a 4-year-old male the ER for evaluation presents today for evaluation of irregular heart rate history of H of fibrillation tachycardia dizziness lightheadedness and not feeling well. Patient heart catheterization today secondary to increased stress and chest pain in his life, per patient states heart cath was negative. But he did develop atrial fibrillation the postop myron od. Patient was given Cardizem is improved he was discharged home. Symptoms returned will patient was home, currently denying chest pain again feels palpitations and lightheadedness Complaint: rapid heart beat, "heart racing", palpitations, irregular heart beat, atrial fibrillation -: hour(s) Context: occurred during rest Arrhythmia History: atrial fibrillation Associated Symptoms: chest pain, shortness of breath Treatments Prior to Arrival: calcium channel luis - Related Data Home Medications Medication Instructions Recorded Confirmed Aspirin [Adult Low Dose Aspirin EC] 81 mg PO HS 04/22/17 02/21/19 Rosuvastatin [Crestor] 10 mg PO HS 04/22/17 02/21/19 Verapamil HCl [Verelan Pm] 100 mg PO HS 12/04/18 02/21/19 [place]-3 Fatty Acids/Fish Oil [Fish 1 cap PO DAILY 02/16/19 02/21/19 Oil 1,000 mg Softgel] Ubidecarenone [Co Q-10] 100 mg PO DAILY 02/16/19 02/21/19 Previous Rx's Medication Instructions Recorded Flecainide [Tambocor] 100 mg PO Q12HR #60 tablet 02/21/19 Allergies Allergy/AdvReac Type Severity Reaction Status Date / Time No Known Allergies Allergy Verified 02/21/19 17:39 Review of Systems ROS Statement: Those systems with pertinent positive or pertinent negative responses have been documented in the HPI. ROS Other: All systems not noted in ROS Statement are negative. Past Medical History Past Medical History: Atrial Fibrillation, Hyperlipidemia History of Any Multi-Drug Resistant Organisms: None Reported Past Surgical History: Cardiac Ablation, Heart Catheterization, Hernia Repair Past Psychological History: No Psychological Hx Reported Smoking Status: Never smoker Past Alcohol Use History: Occasional Past Drug Use History: None Reported General Exam Limitations: no limitations General appearance: alert, in no apparent distress Head exam: Present: atraumatic, normocephalic, normal inspection Eye exam: Present: normal appearance, PERRL, EOMI. Absent: scleral icterus, conjunctival injection, periorbital swelling ENT exam: Present: normal exam, mucous membranes moist Neck exam: Present: normal inspection. Absent: tenderness, meningismus, lymphadenopathy Respiratory exam: Present: normal lung sounds bilaterally. Absent: respiratory distress, wheezes, rales, rhonchi, stridor Cardiovascular Exam: Present: tachycardia, irregular rhythm, normal heart sounds. Absent: systolic murmur, diastolic murmur, rubs, gallop, clicks GI/Abdominal exam: Present: soft, normal bowel sounds. Absent: distended, tenderness, guarding, rebound, rigid Extremities exam: Present: normal inspection, full ROM, normal capillary refill. Absent: tenderness, pedal edema, joint swelling, calf tenderness Back exam: Present: normal inspection Neurological exam: Present: alert, oriented X3, CN II-XII intact Psychiatric exam: Present: normal affect, normal mood Skin exam: Present: warm, dry, intact, normal color. Absent: rash Course Vital Signs 02/21/19 17:23 Temperature 98.4 F Pulse Rate 63 Respiratory 18 Rate Blood Pressure 146/88 O2 Sat by Pulse 98 Oximetry - Reevaluation(s) Reevaluation #1: 02/21/19 19:16 Medical records reviewed Reevaluation #2: 02/21/19 19:16 Patient heart is not significantly improved here in the ER - Consultations Consultation #1: Spoke with Dr. Sands, agrees to admit patient Consultation #2: spoke with [employer] consultant ok to admit patient EKG Findings - EKG Comments: EKG Findings:: EKG shows SVT rate of 142, QRS 06, QTc 519. EKG. Repeat EKG shows a flutter rate of 41, QRS 70, QTc 90, QTc 420 Medical Decision Making - Medical Decision Making 58-year-old male the ER for evaluation, dizziness and history of atrial fibril lation coming in after heart catheterization with recurrent atrial fibrillation and elevated heart rate difficult to control, even Cardizem in the postop period and some home symptoms of worsened tonight he goes back with difficult control H of fibrillation will admit for cardiology observation - Lab Data Result diagrams: 02/21/19 17:45 02/21/19 17:45 Lab Results 02/21/19 02/21/19 02/21/19 Range/Units 17:45 17:45 17:45 WBC 7.7 (3.8-10.6) k/uL RBC 5.90 (4.30-5.90) m/uL Hgb 17.6 H (13.0-17.5) gm/dL Hct 52.6 (39.0-53.0) % MCV 89.2 (80.0-100.0) fL MCH 29.9 (25.0-35.0) pg MCHC 33.5 (31.0-37.0) g/dL RDW 14.2 (11.5-15.5) % Plt Count 265 (150-450) k/uL Neutrophils % 78 % Lymphocytes % 14 % Monocytes % 6 % Eosinophils % 1 % Basophils % 0 % Neutrophils # 6.0 (1.3-7.7) k/uL Lymphocytes # 1.1 (1.0-4.8) k/uL Monocytes # 0.4 (0-1.0) k/uL Eosinophils # 0.1 (0-0.7) k/uL Basophils # 0.0 (0-0.2) k/uL Sodium 143 (137-145) mmol/L Potassium 4.2 (3.5-5.1) mmol/L Chloride 106 (98-107) mmol/L Carbon Dioxide 24 (22-30) mmol/L Anion Gap 13 mmol/L BUN 12 (9-20) mg/dL Creatinine 0.73 (0.66-1.25) mg/dL Est GFR (CKD-EPI)AfAm >90 (>60 ml/min/1.73 sqM) Est GFR (CKD-EPI)NonAf >90 (>60 ml/min/1.73 sqM) Glucose 92 (74-99) mg/dL Calcium 9.3 (8.4-10.2) mg/dL Magnesium 1.9 (1.6-2.3) mg/dL Total Bilirubin 1.3 (0.2-1.3) mg/dL AST 18 (17-59) U/L ALT 14 L (21-72) U/L Alkaline Phosphatase 44 (38-126) U/L Creatine Kinase 41 L (55-170) U/L CK-MB (CK-2) 0.5 (0.0-2.4) ng/mL Troponin I <0.012 (0.000-0.034) ng/mL Total Protein 7.2 (6.3-8.2) g/dL Albumin 4.5 (3.5-5.0) g/dL Critical Care Time Critical Care Time: Yes Total Critical Care Time: 31 Disposition Clinical Impression: Atrial fibrillation with RVR Disposition: ADMITTED IP TO THIS [facility] Condition: Poor Is patient prescribed a controlled substance at d/c from ED?: No Referrals: Severo Kong MD [Primary Care Provider] - 1-2 days
[2019-02-21 18:04] LABS: Basophils % (A) 0 %; Eosinophils # (A) 0.1 k/uL (0-0.7); Eosinophils % (A) 1 %; HCT 52.6 % (39.0-53.0); HGB 17.6 gm/dL (13.0-17.5); Lymphocytes # (A) 1.1 k/uL (1.0-4.8); Lymphocytes % (A) 14 %; MCH 29.9 pg (25.0-35.0); MCHC 33.5 g/dL (31.0-37.0); MCV 89.2 fL (80.0-100.0); Mean Platelet Volume 7.5; Monocytes # (A) 0.4 k/uL (0-1.0); Monocytes % (A) 6 %; Neutrophils % (A) 78 %; Platelet Count 265 k/uL (150-450); RDW 14.2 % (11.5-15.5); WBC 7.7 k/uL (3.8-10.6)
[2019-02-21] MEDS ORDERED: DILTIAZEM 5 MG/ML 5 ML VIAL IVP STA (18:09)
[2019-02-21 18:16] LABS: ALT 14 U/L (21-72); AST 18 U/L (17-59); African American GFR (CKD) >90 (>60 ml/min/1.73 sqM); Albumin 4.5 g/dL (3.5-5.0); Alkaline Phosphatase 44 U/L (38-126); Anion Gap 13 mmol/L; Blood Urea Nitrogen 12 mg/dL (9-20); Calcium 9.3 mg/dL (8.4-10.2); Carbon Dioxide 24 mmol/L (22-30); Chloride 106 mmol/L (98-107); Creatine Kinase 41 U/L (55-170); Glucose 92 mg/dL (74-99); Magnesium 1.9 mg/dL (1.6-2.3); Potassium 4.2 mmol/L (3.5-5.1); Sodium 143 mmol/L (137-145); Total Bilirubin 1.3 mg/dL (0.2-1.3); Total Protein 7.2 g/dL (6.3-8.2)
[2019-02-21 18:34] LABS: Creatine Kinase MB 0.5 ng/mL (0.0-2.4); Troponin I <0.012 ng/mL (0.000-0.034)
[2019-02-21] MEDS ORDERED: METOPROLOL TARTRATE 5 MG/5 ML VIAL IVP STA (19:14)
[2019-02-21] MEDS ORDERED: DILTIAZEM 125 MG in SODIUM CHLORIDE 0.9% 100 ML IV SCH (19:15)
[2019-02-21] MEDS ORDERED: NITROGLYCERIN SL TABS 0.4 MG TAB SUBLINGUAL PRN (19:56)
[2019-02-21] MEDS ORDERED: HEPARIN SODIUM,PORCINE 5,000 UNIT/ML 1 ML VIAL IV PRN (19:56)
[2019-02-21] MEDS ORDERED: HEPARIN SODIUM,PORCINE 5,000 UNIT/ML 1 ML VIAL IV ONE (19:58)
[2019-02-21] MEDS ORDERED: HEPARIN SOD,PORK IN 0.45% NACL 25,000 UNIT in 0.45% NACL 1 250ML.BAG IV SCH (20:00)
[2019-02-21] MEDS: SODIUM CHLORIDE 0.9% 1,000 ML IV SCH (21:04)
[2019-02-22] MEDS ORDERED: ATORVASTATIN 20 MG TAB PO SCH
[2019-02-22] MEDS ORDERED: VERAPAMIL SR 120 MG TABLET.ER PO SCH
[2019-02-22] MEDS ORDERED: ALPRAZolam 0.5 MG TAB PO PRN (00:01)
--- NOTE | 2019-02-22 00:09 | P.HPIM ---
History of Present Illness H&P Date: 02/21/19 Chief Complaint: Heart racing 58-year-old male with history of paroxysmal A. fib that is post ablation 4-5 years ago Patient presented to the hospital due to recurrent episodes of palpitations. He reports that this morning he was at his baseline status of health he went for a scheduled left heart cath per his postmaster relief's recommendations which turned out to be negative for any significant occlusions. After the procedure he went into A. fib with RVR for which she received some Cardizem and then he was stabilized and discharged home he was given a prescription for flecainide that he couldn't fill yet. However while at home half an hour to an hour later he started experiencing palpitations and heart racing with some dizziness but otherwise denies any sweating nausea vomiting chest pain trouble breathing or confusion. Due to these recurrent episodes he grew concerned and decided to come to the hospital for evaluation. Patient reports history of ablation 5 years ago. And he takes verapamil at home Patient is not on any blood thinners In the ED he was found to be in A. fib with RVR he was given some Cardizem and Lopressor and then he was rate controlled cardiology was notified and recommended observation overnight for further evaluation in the morning Otherwise patient denies any abdominal pain GI bleeding nausea or vomiting denies any chest pain or trouble breathing Review of Systems Pertinent positives as noted in HPI. All other systems were reviewed and are negative Past Medical History Past Medical History: Atrial Fibrillation, Hyperlipidemia History of Any Multi-Drug Resistant Organisms: None Reported Past Surgical History: Cardiac Ablation, Heart Catheterization, Hernia Repair Past Psychological History: No Psychological Hx Reported Smoking Status: Never smoker Past Alcohol Use History: Occasional Past Drug Use History: None Reported - Past Family History Family Additional Family Medical History / Comment(s): Father with history of coronary artery disease status post CABG Medications and Allergies Home Medications Medication Instructions Recorded Confirmed Type Aspirin [Adult Low Dose Aspirin EC] 81 mg PO HS 04/22/17 02/21/19 History Rosuvastatin [Crestor] 10 mg PO HS 04/22/17 02/21/19 History Verapamil HCl [Verelan Pm] 100 mg PO HS 12/04/18 02/21/19 History [place]-3 Fatty Acids/Fish Oil [Fish 1 cap PO DAILY 02/16/19 02/21/19 History Oil 1,000 mg Softgel] Ubidecarenone [Co Q-10] 100 mg PO DAILY 02/16/19 02/21/19 History Flecainide [Tambocor] 100 mg PO Q12HR #60 tablet 02/21/19 02/21/19 Rx Allergies Allergy/AdvReac Type Severity Reaction Status Date / Time No Known Allergies Allergy Verified 02/21/19 17:39 Physical Exam Vitals: Vital Signs Temp Pulse Resp BP Pulse Ox 02/21/19 21:10 62 18 123/98 99 02/21/19 19:54 57 L 18 120/89 99 02/21/19 17:23 98.4 F 63 18 146/88 98 Intake and Output 02/21/19 02/21/19 02/22/19 14:59 22:59 06:59 Other: Weight 102.058 kg Constitutional: No acute distress, conversant, pleasant Eyes: Anicteric sclerae, moist conjunctiva, no lid-lag Pupils equal round reactive to light ENMT: NC/AT Oropharynx clear, no erythema, no exudates Neck: Supple, FROM, no masses, or JVD No carotid bruits No thyromegaly Lungs: Clear to auscultation Clear to percussion Normal respiratory effort, no accessory muscle use Cardiovascular: Heart irregular, No murmurs, gallops, or rubs No peripheral edema Abdominal: Soft Nontender, no guarding, rebound or rigidity Abdomen moving with respiration Normoactive bowel sounds No hepatomegaly, No splenomegaly No palpable mass No abdominal wall hernia noted Skin: Normal temperature, tone, texture, turgor No induration No subcutaneous nodules No rash, lesions No ulcers Extremities: Right groin examined site of access of left heart cath looks unremarkable no swelling no bruising no ecchymosis no bleeding No digital cyanosis No clubbing Pedal pulses intact and symmetrical Radial pulses intact and symmetrical No calf tenderness Psychiatric: Alert and oriented to person, place and time Appropriate affect fair judgment Neuro Muscles Strength 5/5 in all 4 extremities Sensation to light touch grossly present throughout Cranial nerves II-XII grossly intact No focal sensory deficits Lymphatics: no palpable cervical or supraclavicular , or inguinal lymph nodes Results CBC & Chem 7: 02/21/19 17:45 02/21/19 17:45 Labs: Abnormal Lab Results - Last 24 Hours (Table) 02/21/19 02/21/19 Range/Units 17:45 17:45 Hgb 17.6 H (13.0-17.5) gm/dL ALT 14 L (21-72) U/L Creatine Kinase 41 L (55-170) U/L Assessment and Plan Assessment: 58-year-old male with history of A. fib status post ablation patient admitted under observation with anticipated length of stay less than to midnight due to recurrent A. fib with RVR and a flutter patient rate is controlled now however due to recurrent episode today cardiology recommended observation overnight and reevaluation in the morning Patient had an outpatient left heart cath today which was negative for any significant occlusions however after the test he had an episode of A. fib with RVR for which she was given Cardizem got controlled and was sent home but then came back to the hospital due to recurrent episodes Plan: paroxysmal afib with RVR currently rate controlled resume home meds patient has not started flecainide yet Heparin subcu 3 times a day for DVT prophylaxis Follow-up electrolytes magnesium and potassium Continue with aspirin and statin Cardiac monitoring Cardiology consult Xanax when necessary for anxiety Surrogate decision-maker: Patient CODE STATUS: Full code Discussed with: Patient, ER, RN Anticipated length of stay less than than [address]: Home A total of 60 minutes was spent on the care of this complex patient more than 50% of the time was spent in counseling and care coordination.
[2019-02-22 06:01] LABS: Mean Platelet Volume 7.6; Platelet Count 236 k/uL (150-450)
[2019-02-22 06:16] LABS: African American GFR (CKD) >90 (>60 ml/min/1.73 sqM); Anion Gap 6 mmol/L; Blood Urea Nitrogen 14 mg/dL (9-20); Carbon Dioxide 27 mmol/L (22-30); Chloride 108 mmol/L (98-107); Cholesterol 102 mg/dL (<200); Glucose 88 mg/dL (74-99); HDL Cholesterol 38 mg/dL (40-60); LDL Cholesterol,Calculated 52 mg/dL (0-99); Potassium 4.1 mmol/L (3.5-5.1); Sodium 141 mmol/L (137-145); Triglycerides 62 mg/dL (<150)
[2019-02-22] MEDS: SODIUM CHLORIDE 0.9% 1,000 ML IV SCH (06:55)
[2019-02-22] MEDS ORDERED: HEPARIN SODIUM,PORCINE 5,000 UNIT/ML 1 ML VIAL SQ SCH (08:00)
[2019-02-22] MEDS ORDERED: FLECAINIDE 50 MG TAB PO SCH (09:00)
--- NOTE | 2019-02-22 09:26 | P.CRDCN ---
History of Present Illness Consult date: 02/22/19 Requesting physician: Melo Becker Consult reason: atrial flutter Chief complaint: Palpitations History of present illness: This is a pleasant 58-year-old gentleman who follows regularly with Dr. Tracy in the office. He has a known history of hypertension, hyperlipidemia, family history of coronary artery disease, history of typical atrial flutter, for which the patient has undergone successful ablation in the past. Patient underwent a cardiac catheterization yesterday which revealed normal coronary arteries with normal left ventricular end-diastolic pressures. Before he was sent home from the hospital, he had an episode of atrial flutter, he was given IV Cardizem and converted to normal sinus rhythm, subsequently discharged home. On arrival home shortly thereafter patient states he noticed his heart racing again, in the 1 4150 range and he came back to the emergency room. His EKG on presentation here showed atrial flutter with rapid ventricular response, patient was given a dose of flecainide and converted to normal sinus rhythm. He continues to be in a normal sinus rhythm this morning. Feels well. Denies any chest discomfort, no palpitations. Past Medical History Past Medical History: Atrial Fibrillation, Hyperlipidemia History of Any Multi-Drug Resistant Organisms: None Reported Past Surgical History: Cardiac Ablation, Heart Catheterization, Hernia Repair Past Psychological History: No Psychological Hx Reported Smoking Status: Never smoker Past Alcohol Use History: Occasional Past Drug Use History: None Reported - Past Family History Family Additional Family Medical History / Comment(s): Father with history of coronary artery disease status post CABG Medications and Allergies Home Medications Medication Instructions Recorded Confirmed Type Aspirin [Adult Low Dose Aspirin EC] 81 mg PO HS 04/22/17 02/21/19 History Rosuvastatin [Crestor] 10 mg PO HS 04/22/17 02/21/19 History Verapamil HCl [Verelan Pm] 100 mg PO HS 12/04/18 02/21/19 History [place]-3 Fatty Acids/Fish Oil [Fish 1 cap PO DAILY 02/16/19 02/21/19 History Oil 1,000 mg Softgel] Ubidecarenone [Co Q-10] 100 mg PO DAILY 02/16/19 02/21/19 History Flecainide [Tambocor] 100 mg PO Q12HR #60 tablet 02/21/19 02/21/19 Rx Allergies Allergy/AdvReac Type Severity Reaction Status Date / Time No Known Allergies Allergy Verified 02/21/19 17:39 Physical Exam Vitals: Vital Signs Temp Pulse Pulse Resp BP BP Pulse Ox 02/22/19 07:53 98.0 F 60 13 110/67 94 L 02/22/19 02:30 98.5 F 69 17 98/62 98 02/21/19 22:30 60 17 02/21/19 22:20 98.2 F 60 17 140/73 96 02/21/19 21:10 62 18 123/98 99 02/21/19 19:54 57 L 18 120/89 99 02/21/19 17:23 98.4 F 63 18 146/88 98 Intake and Output 02/21/19 02/22/19 02/22/19 22:59 06:59 14:59 Intake Total 236 Balance 236 Intake: Oral 236 Other: Voiding Method Toilet Toilet # Voids 1 3 Weight 102.058 kg 102.1 kg PHYSICAL EXAMINATION: GENERAL: 58-year-old gentleman in no acute distress at the time of my examination HEENT: Head is atraumatic, normocephalic. Pupils equal, round. Sclera anicteric. Conjunctiva are clear. Mucous membranes of the mouth are moist. Neck is supple. There is no elevated jugular venous pressure. bruit is heard. HEART EXAMINATION: Heart S1, S2 normal. No murmur or gallop heard. CHEST EXAMINATION: Lungs are clear to auscultation and precussion. No chest wall tenderness is noted on palpation or with deep breathing. ABDOMEN: Soft, nontender. Bowel sounds are heard. No organomegaly noted. EXTREMITIES: 2+ peripheral pulses with no evidence of peripheral edema and no calf tenderness noted. Right groin soft, no evidence of any hematoma. NEUROLOGIC patient is awake, alert and oriented 3 . . Results 02/22/19 05:41 02/22/19 05:41 Cardiac Enzymes 02/21/19 02/21/19 02/21/19 Range/Units 17:45 17:45 23:37 AST 18 (17-59) U/L CK-MB (CK-2) 0.5 (0.0-2.4) ng/mL Troponin I <0.012 <0.012 (0.000-0.034) ng/mL 02/22/19 Range/Units 05:41 AST (17-59) U/L CK-MB (CK-2) (0.0-2.4) ng/mL Troponin I <0.012 (0.000-0.034) ng/mL Coagulation 02/22/19 Range/Units 02:09 APTT 32.7 H (22.0-30.0) sec Lipids 02/22/19 Range/Units 05:41 Triglycerides 62 (<150) mg/dL Cholesterol 102 (<200) mg/dL HDL Cholesterol 38 L (40-60) mg/dL CBC 02/21/19 02/22/19 Range/Units 17:45 05:41 WBC 7.7 (3.8-10.6) k/uL RBC 5.90 (4.30-5.90) m/uL Hgb 17.6 H (13.0-17.5) gm/dL Hct 52.6 (39.0-53.0) % Plt Count 265 236 (150-450) k/uL Comprehensive Metabolic Panel 02/21/19 02/22/19 Range/Units 17:45 05:41 Sodium 143 141 (137-145) mmol/L Potassium 4.2 4.1 (3.5-5.1) mmol/L Chloride 106 108 H (98-107) mmol/L Carbon Dioxide 24 27 (22-30) mmol/L BUN 12 14 (9-20) mg/dL Creatinine 0.73 0.81 (0.66-1.25) mg/dL Glucose 92 88 (74-99) mg/dL Calcium 9.3 9.0 (8.4-10.2) mg/dL AST 18 (17-59) U/L ALT 14 L (21-72) U/L Alkaline Phosphatase 44 (38-126) U/L Total Protein 7.2 (6.3-8.2) g/dL Albumin 4.5 (3.5-5.0) g/dL Current Medications Generic Name Dose Route Start Last Admin Trade Name Freq PRN Reason Stop Dose Admin Alprazolam 0.5 mg 02/22/19 00:01 02/22/19 02:00 Xanax PO 0.5 mg TID PRN Administration Anxiety Aspirin 81 mg 02/22/19 21:00 Aspirin PO HS CARLOS Atorvastatin Calcium 10 mg 02/22/19 00:00 02/22/19 04:52 Lipitor PO Not Given HS CARLOS Flecainide Acetate 100 mg 02/22/19 09:00 02/22/19 08:29 Tambocor PO 100 mg Q12HR CARLOS Administration Heparin Sodium (Porcine) 5,000 unit 02/22/19 08:00 02/22/19 08:29 Heparin SQ 5,000 unit Q8HR CARLOS Administration Sodium Chloride 1,000 mls @ 100 mls/hr 02/21/19 20:00 02/22/19 06:55 Saline 0.9% IV Not Given .Q10H CARLOS Nitroglycerin 0.4 mg 02/21/19 19:56 Nitrostat SUBLINGUAL Q5M PRN Chest Pain Verapamil HCl 120 mg 02/22/19 00:00 02/22/19 04:52 Isoptin Sr PO Not Given HS CARLOS Intake and Output 02/21/19 02/22/19 02/22/19 22:59 06:59 14:59 Intake Total 236 Balance 236 Intake: Oral 236 Other: Voiding Method Toilet Toilet # Voids 1 3 Weight 102.058 kg 102.1 kg 02/22/19 05:41 02/22/19 05:41 EKG Interpretations (text) Initial EKG showed atrial flutter with a rapid ventricular response, subsequent EKG continued to show a flutter. Assessment and Plan Plan: Assessment and plan #1 atrial flutter with rapid ventricular response, typical, currently in normal sinus rhythm #2 hyperlipidemia #3 hypertension #4 family history of premature coronary disease #5 history of atrial flutter with prior ablation Plan We will put the patient on flecainide 100 mg by mouth twice a day, initiating anticoagulation. Patient should be able to be discharged home today, he has a follow-up appointment with Dr. Tracy in the office tomorrow. DNP note has been reviewed, I agree with a documented findings and plan of care. Patient was seen and examined.
[2019-02-22 11:57] VITALS: BP 138/60; PULSE 85; RESP 15; TEMP 98.1
[2019-02-22] MEDS ORDERED: APIXABAN 5 MG TAB PO SCH (12:30)
[2019-02-22] MEDS ORDERED: RIVAROXABAN 20 MG TAB PO SCH (17:30)
--- NOTE | 2019-02-22 18:02 | P.DS ---
Providers Date of admission: 02/21/19 19:58 Expected date of discharge: 02/22/19 Attending physician: Melo Becker MD Consults: 02/21/19 19:56 Consult Physician Urgent Consulting Provider: Dallas Tracy Consult Reason/Comments: known Do you want consulting provider notified?: Yes Primary care physician: Severo Kong - Discharge Diagnosis(es) (1) Atrial flutter with rapid ventricular response Status: Acute (2) Hyperlipidemia Status: Acute (3) Essential hypertension Status: Acute Hospital Course: The patient is a 58-year-old male with a history of atrial flutter and successful ablation who was admitted in observation status on telemetry after presenting with atrial flutter with RVR he was given IV Cardizem and flecainide and subsequently converted back to normal sinus mechanism. The patient was started on anticoagulation with Xarelto for CVA prophylaxis. He was subsequently discharged home and instructed to follow-up with his primary biomedical engineering technician Dr. Tracy in office tomorrow and his dose of flecainide was increased to 100 mg by mouth twice a day. This discharge process took approximately 30 minutes. Focused exam Cardiac: Regular rate and rhythm no murmurs or gallops, no peripheral edema Patient Condition at Discharge: Good Plan - Discharge Summary Discharge Rx Participant: No New Discharge Prescriptions: New Rivaroxaban [Xarelto] 20 mg PO DAILY@1800 #30 tab Continue Aspirin [Adult Low Dose Aspirin EC] 81 mg PO HS Rosuvastatin [Crestor] 10 mg PO HS Verapamil HCl [Verelan Pm] 100 mg PO HS Ubidecarenone [Co Q-10] 100 mg PO DAILY [place]-3 Fatty Acids/Fish Oil [Fish Oil 1,000 mg Softgel] 1 cap PO DAILY Flecainide [Tambocor] 100 mg PO Q12HR #60 tablet Discharge Medication List Aspirin [Adult Low Dose Aspirin EC] 81 mg PO HS 04/22/17 [History] Rosuvastatin [Crestor] 10 mg PO HS 04/22/17 [History] Verapamil HCl [Verelan Pm] 100 mg PO HS 12/04/18 [History] [place]-3 Fatty Acids/Fish Oil [Fish Oil 1,000 mg Softgel] 1 cap PO DAILY 02/16/19 [History] Ubidecarenone [Co Q-10] 100 mg PO DAILY 02/16/19 [History] Flecainide [Tambocor] 100 mg PO Q12HR #60 tablet 02/21/19 [Rx] Rivaroxaban [Xarelto] 20 mg PO DAILY@1800 #30 tab 02/22/19 [Rx] Follow up Appointment(s)/Referral(s): Dallas Tracy MD [STAFF PHYSICIAN] - 02/28/19 1:45 pm (With Ramses RIVERA) Severo Kong MD [Primary Care Provider] - 1-2 days (Office having phone issues, please call and schedule follow up appointment within one week of being discharged from the hospital.) Patient Instructions/Handouts: A-fib (Atrial Fibrillation) (DC), Safe Use of Anticoagulants (DC) Discharge Disposition: HOME SELF-CARE
[2019-02-22] MEDS ORDERED: ASPIRIN 81 MG PO SCH (21:00)
== END 2019-02-22 17:35 | disposition home or self-care (01) ==
LOC: EC 17:22 → 3SCARD 19:58
PROVIDERS: ADMIT Family Medicine; ATTEND Family Medicine
DX: I48.92 Unspecified atrial flutter (principal); I48.0 Paroxysmal atrial fibrillation; E78.5 Hyperlipidemia, unspecified; F41.9 Anxiety disorder, unspecified; I10 Essential (primary) hypertension; Z98.890 Other specified postprocedural states; Z79.82 Long term (current) use of aspirin; Z79.899 Other long term (current) drug therapy; Z82.49 Family history of ischemic heart disease and other diseases of the circulatory system
CPT/HCPCS: 96366 ×3; 96372; 96376; 96361; 96365; 96375; 99291; 36415; 93005; 80061; 80053; 80048; 82550; 82553; 83735 ×2; 84484 ×2; 85025; 85049; 85730; G0378 ×2; J1644 ×3

== ENCOUNTER 2019-02-27 10:32 | Observation (INO) | payer BC ==
--- NOTE | 2019-02-27 11:07 | ED ---
Arrhythmia/Palpitations HPI - General Source: patient, RN notes reviewed Mode of arrival: wheelchair Limitations: no limitations <Jony Myers - Last Filed: 02/27/19 14:11> <Leila Sullivan - Last Filed: 03/08/19 13:02> - General Chief Complaint: Arrhythmia/Palpitations Stated Complaint: Palpitations Time Seen by Provider: 02/27/19 10:38 - History of Present Illness Initial Comments: This a 4-year-old male presents emergency Department with chief complaint of A. fib. Patient states that he does have a history of A. fib patient had a cardiac cath by Dr. Fish 6 days ago and postprocedural he developed A. fib RVR he was given Cardizem and metoprolol which resolved his symptoms and he was discharged home later that day that he return to the symptoms of palpitations return. Patient was admitted overnight on Cardizem and patient was discharged on flecainide and Xarelto. Patient states that he has been on flexion night in the past and is also had a cardiac ablation by Dr. Tracy. Patient denies shortne ss breath, headache, dizziness, blurred vision, nausea, vomiting, chest pain (Jony Myers) - Related Data Home Medications Medication Instructions Recorded Confirmed Rosuvastatin [Crestor] 10 mg PO DAILY@1800 04/22/17 02/27/19 [place]-3 Fatty Acids/Fish Oil [Fish 1 cap PO DAILY 02/16/19 02/27/19 Oil 1,000 mg Softgel] Ubidecarenone [Co Q-10] 100 mg PO DAILY 02/16/19 02/27/19 Previous Rx's Medication Instructions Recorded Rivaroxaban [Xarelto] 20 mg PO DAILY@1800 #30 tab 02/22/19 Flecainide [Tambocor] 100 mg PO Q12HR 30 Days #60 tablet 02/28/19 Verapamil Sr [Isoptin Sr] 120 mg PO Q12HR 30 Days #60 02/28/19 tablet.er Allergies Allergy/AdvReac Type Severity Reaction Status Date / Time No Known Allergies Allergy Verified 02/27/19 11:08 Review of Systems ROS Other: All systems not noted in ROS Statement are negative. <Jony Myers - Last Filed: 02/27/19 14:11> ROS Other: All systems not noted in ROS Statement are negative. <Leila Sullivan - Last Filed: 03/08/19 13:02> ROS Statement: Those systems with pertinent positive or pertinent negative responses have been documented in the HPI. Past Medical History Past Medical History: Atrial Fibrillation, Hyperlipidemia History of Any Multi-Drug Resistant Organisms: None Reported Past Surgical History: Cardiac Ablation, Heart Catheterization, Hernia Repair Past Psychological History: No Psychological Hx Reported Smoking Status: Never smoker Past Alcohol Use History: Occasional Past Drug Use History: None Reported - Past Family History Family Additional Family Medical History / Comment(s): Father with history of coronary artery disease status post CABG <Jony Myers Aleksander - Last Filed: 02/27/19 14:11> General Exam Limitations: no limitations General appearance: alert, in no apparent distress Head exam: Present: atraumatic, normocephalic, normal inspection Eye exam: Present: normal appearance, PERRL, EOMI. Absent: scleral icterus, conjunctival injection, periorbital swelling Neck exam: Present: normal inspection, full ROM. Absent: tenderness, meningismu s, lymphadenopathy Respiratory exam: Present: normal lung sounds bilaterally. Absent: respiratory distress, wheezes, rales, rhonchi, stridor Cardiovascular Exam: Present: tachycardia, irregular rhythm, normal heart sounds. Absent: normal rhythm, systolic murmur, diastolic murmur, rubs, gallop, clicks GI/Abdominal exam: Present: soft, normal bowel sounds. Absent: distended, tenderness, guarding, rebound, rigid Extremities exam: Present: pedal edema Neurological exam: Present: alert, oriented X3, CN II-XII intact Skin exam: Present: warm, dry, intact, normal color. Absent: rash <Jony Myers Aleksander - Last Filed: 02/27/19 14:11> Course <Jony Myers - Last Filed: 02/27/19 14:11> Vital Signs 02/27/19 02/27/19 02/27/19 10:35 11:01 11:30 Temperature 98.4 F Pulse Rate 139 H 141 H 141 H Respiratory 18 17 17 Rate Blood Pressure 151/110 127/93 O2 Sat by Pulse 99 97 95 Oximetry 02/27/19 02/27/19 02/27/19 12:00 12:30 12:32 Temperature Pulse Rate 146 H 144 H 141 H Respiratory 16 16 16 Rate Blood Pressure 116/89 113/87 106/87 O2 Sat by Pulse 94 L 93 L 96 Oximetry 02/27/19 02/27/19 02/27/19 13:00 13:30 14:00 Temperature Pulse Rate 144 H 115 H 78 Respiratory 17 17 15 Rate Blood Pressure 106/87 114/93 114/75 O2 Sat by Pulse 95 96 93 L Oximetry 02/27/19 02/27/19 02/27/19 14:30 15:00 15:30 Temperature Pulse Rate 78 93 78 Respiratory 19 18 18 Rate Blood Pressure 109/83 117/82 119/79 O2 Sat by Pulse 93 L 95 96 Oximetry 02/27/19 02/27/19 02/27/19 16:00 16:30 17:00 Temperature Pulse Rate 81 79 80 Respiratory 12 18 17 Rate Blood Pressure 111/81 113/81 126/90 O2 Sat by Pulse 95 96 94 L Oximetry 02/27/19 17:30 Temperature Pulse Rate 80 Respiratory 17 Rate Blood Pressure 140/96 O2 Sat by Pulse 92 L Oximetry - Reevaluation(s) Reevaluation #1: 02/27/19 11:05 Dr. Wu did attempt to contact Dr. Tracy though he is unavailable as he is in a procedure in the [employer] (Jony Myers) EKG Findings - EKG Comments: EKG Findings:: EKG at 11 AM demonstrates a flutter with a rapid rate of 114. QRS 112. QTC 483. No acute ST segment elevations or depressions concerning for ischemic changes. EKG at 14:24 demonstrates a flutter with 4-1 AV conduction block. Ventricular rate is 79. QRS 116. QTC 447. No acute ST segment elevations. <Leila Sullivan - Last Filed: 03/08/19 13:02> Medical Decision Making - Lab Data Result diagrams: 02/27/19 11:26 02/27/19 11:26 <Jony Myers - Last Filed: 02/27/19 14:11> - Lab Data Result diagrams: 02/27/19 11:26 02/28/19 05:14 <Leila Sullivan - Last Filed: 03/08/19 13:02> - Medical Decision Making 4-year-old male present emergency from for outpatient. Patient's found to be in A. fib with RVR. Cardiology was consult did and patient evaluated by multiple providers. Patient has persistent A. fib refractory of Cardizem at this time. Patient will be admitted for Cardizem drip and further evaluation. (Jony Myers) I was available for consultation in the emergency department. The history and physical exam were done by the midlevel provider. I was consulted for this patient's care. I reviewed the case with the midlevel provider and based on their presentation of the patient, I agree with the assessment, medical decision making and plan of care as documented. I evaluated the patient myself. I called and discussed the case with Dr. Tracy's PA. Dr. Tracy and the PA present to the ED to evaluate the patient. They agree with our management and the patient was transported to the floor in stable condition. Chart was dictated using [employer] dictation software. Attempts were made to correct any dictation errors however some typographical errors may persist. (Leila Sullivan) - Lab Data Lab Results 02/27/19 02/27/19 02/27/19 Range/Units 11:26 11:26 11:26 WBC 5.4 (3.8-10.6) k/uL RBC 5.49 (4.30-5.90) m/uL Hgb 16.5 (13.0-17.5) gm/dL Hct 48.5 (39.0-53.0) % MCV 88.3 (80.0-100.0) fL MCH 30.0 (25.0-35.0) pg MCHC 34.0 (31.0-37.0) g/dL RDW 13.0 (11.5-15.5) % Plt Count 240 (150-450) k/uL Neutrophils % 77 % Lymphocytes % 11 % Monocytes % 7 % Eosinophils % 2 % Basophils % 1 % Neutrophils # 4.2 (1.3-7.7) k/uL Lymphocytes # 0.6 L (1.0-4.8) k/uL Monocytes # 0.4 (0-1.0) k/uL Eosinophils # 0.1 (0-0.7) k/uL Basophils # 0.1 (0-0.2) k/uL Sodium 142 (137-145) mmol/L Potassium 4.3 (3.5-5.1) mmol/L Chloride 107 (98-107) mmol/L Carbon Dioxide 26 (22-30) mmol/L Anion Gap 9 mmol/L BUN 11 (9-20) mg/dL Creatinine 0.79 (0.66-1.25) mg/dL Est GFR (CKD-EPI)AfAm >90 (>60 ml/min/1.73 sqM) Est GFR (CKD-EPI)NonAf >90 (>60 ml/min/1.73 sqM) Glucose 89 (74-99) mg/dL Calcium 9.5 (8.4-10.2) mg/dL Magnesium 2.0 (1.6-2.3) mg/dL Total Bilirubin 1.3 (0.2-1.3) mg/dL AST 20 (17-59) U/L ALT 22 (21-72) U/L Alkaline Phosphatase 37 L (38-126) U/L Troponin I <0.012 (0.000-0.034) ng/mL Total Protein 7.1 (6.3-8.2) g/dL Albumin 4.5 (3.5-5.0) g/dL Disposition <Jony Myers - Last Filed: 02/27/19 14:11> <Leila Sullivan - Last Filed: 03/08/19 13:02> Clinical Impression: Atrial fibrillation with RVR Disposition: ADMITTED IP TO THIS HOSP Condition: Good
[2019-02-27 11:39] LABS: Basophils # (A) 0.1 k/uL (0-0.2); Basophils % (A) 1 %; Eosinophils # (A) 0.1 k/uL (0-0.7); Eosinophils % (A) 2 %; HCT 48.5 % (39.0-53.0); HGB 16.5 gm/dL (13.0-17.5); Lymphocytes # (A) 0.6 k/uL (1.0-4.8); Lymphocytes % (A) 11 %; MCV 88.3 fL (80.0-100.0); Mean Platelet Volume 7.2; Monocytes # (A) 0.4 k/uL (0-1.0); Monocytes % (A) 7 %; Neutrophils # (A) 4.2 k/uL (1.3-7.7); Neutrophils % (A) 77 %; Platelet Count 240 k/uL (150-450); RBC 5.49 m/uL (4.30-5.90); WBC 5.4 k/uL (3.8-10.6)
[2019-02-27 11:48] LABS: ALT 22 U/L (21-72); AST 20 U/L (17-59); African American GFR (CKD) >90 (>60 ml/min/1.73 sqM); Albumin 4.5 g/dL (3.5-5.0); Alkaline Phosphatase 37 U/L (38-126); Anion Gap 9 mmol/L; Blood Urea Nitrogen 11 mg/dL (9-20); Calcium 9.5 mg/dL (8.4-10.2); Carbon Dioxide 26 mmol/L (22-30); Chloride 107 mmol/L (98-107); Glucose 89 mg/dL (74-99); Potassium 4.3 mmol/L (3.5-5.1); Sodium 142 mmol/L (137-145); Total Bilirubin 1.3 mg/dL (0.2-1.3); Total Protein 7.1 g/dL (6.3-8.2)
[2019-02-27] MEDS ORDERED: DILTIAZEM DRIP BOLUS FROM BAG 1 MG SOLN IV ONE (11:55)
[2019-02-27] MEDS: DILTIAZEM 125 MG in SODIUM CHLORIDE 0.9% 100 ML IV SCH ×2 (12:39→20:52)
[2019-02-27] MEDS ORDERED: NALOXONE 0.4 MG/ML 1 ML VIAL IV PRN (14:12)
--- NOTE | 2019-02-27 17:37 | P.HPIM ---
History of Present Illness H&P Date: 02/27/19 Chief Complaint: palpitations Patient is a 58-year-old male past medical history of dyslipidemia, atrial fibrillation status post ablation, and alcohol use who presented to the emergency department from Dr. Kong's office due to palpitations. Patient was recently admitted from 02/21 through 02/22 for A. fib with RVR that happened during cardiac catheterization. Cardiac catheterization did not show any significant disease. At that point in time he was started on Flecanide and verapamil. Xarelto was added and he was seen by Dr. Monsalve. He was discharged home. He did well initially after discharge however he reports that the day prior to admission he felt palpitations that were persistent. In the ER he came that showed atrial flutter with possible 2-1 block rate of 144. He was seen by Dr. Tracy and was started on a Cardizem drip. Arrangements were made for observation for atrial flutter with rapid ventricular response. His heart rate to become control with rate of 70 to 80s on a Cardizem drip however he maintained in Atrial Flutter. Patient seen and examined at bedside in the emergency department. He reports that he initially did well after he went home. He returned to work yesterday. At approximately 5 PM he felt his heart starting to race. He reports that he felt anxious or had a funny feeling. He denied any shortness of breath, lightheaded or dizziness, weakness, or chest pain. He reports that he has been consistent with taking his medications and has not missed any doses. Today he presented to Dr. Kong's office for his scheduled follow-up appointment was found to be persistently tachycardic was therefore referred to the hospital. He denies any recent cough, cold, fever, flu, nausea, vomiting, diarrhea, or dysu maury. Review of Systems Pertinent positives and negatives as discussed in HPI, a complete review of systems was performed and all other systems are negative. 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 - Past Family History Family Additional Family Medical History / Comment(s): Father with history of coronary artery disease status post CABG Medications and Allergies Home Medications Medication Instructions Recorded Confirmed Type Aspirin [Adult Low Dose Aspirin EC] 81 mg PO HS 04/22/17 02/27/19 History Rosuvastatin [Crestor] 10 mg PO DAILY@1800 04/22/17 02/27/19 History Verapamil HCl [Verelan Pm] 100 mg PO HS 12/04/18 02/27/19 History [place]-3 Fatty Acids/Fish Oil [Fish 1 cap PO DAILY 02/16/19 02/27/19 History Oil 1,000 mg Softgel] Ubidecarenone [Co Q-10] 100 mg PO DAILY 02/16/19 02/27/19 History Rivaroxaban [Xarelto] 20 mg PO DAILY@1800 #30 tab 02/22/19 02/27/19 Rx Flecainide [Tambocor] 50 mg PO Q12HR 02/27/19 02/27/19 History Allergies Allergy/AdvReac Type Severity Reaction Status Date / Time No Known Allergies Allergy Verified 02/27/19 11:08 Physical Exam Osteopathic Statement: *. No significant issues noted on an osteopathic structural exam other than those noted in the History and Physical/Consult. Vitals: Vital Signs Temp Pulse Resp BP Pulse Ox 02/27/19 15:30 78 18 119/79 96 02/27/19 15:00 93 18 117/82 95 02/27/19 14:30 78 19 109/83 93 L 02/27/19 14:00 78 15 114/75 93 L 02/27/19 13:30 115 H 17 114/93 96 02/27/19 13:00 144 H 17 106/87 95 02/27/19 12:32 141 H 16 106/87 96 02/27/19 12:30 144 H 16 113/87 93 L 02/27/19 12:00 146 H 16 116/89 94 L 02/27/19 11:30 141 H 17 127/93 95 02/27/19 11:01 141 H 17 97 02/27/19 10:35 98.4 F 139 H 18 151/110 99 Intake and Output 02/27/19 02/27/19 02/27/19 06:59 14:59 22:59 Other: Weight 102.058 kg General: non toxic, no distress, appears at stated age, normal weight Derm: no unusual rashes/lesions no unusual ecchymoses, warm, dry Head: atraumatic, normocephalic, symmetric Eyes: EOMI, no lid lag, anicteric sclera, pupils equal round reactive to light ENT: Nose and ears atraumatic, no thrush, no pharyngeal erythema Neck: No thyromegaly, no cervical lymphadenopathy, trachea midline, supple Mouth: no lip lesion, mucus membranes moist Cardiovascular: S1S2 reg, no murmur, positive posterior tibial pulse bilateral, no edema, capillary refill less than 2 seconds Lungs: CTA bilateral, no rhonchi, no rales , no accessory muscle use Abdominal: soft, nontender to palpation, no guarding, no appreciable organomegaly, normal bowel sounds Ext: no gross muscle atrophy, muscle strength 5 out of 5 in all 4 extremities grossly, no contractures, Neuro: CN II-XI grossly intact, light touch intact all 4 extremities, finger to nose within normal limits, Psych: Alert, oriented, appropriate affect Results CBC & Chem 7: 02/27/19 11:26 02/27/19 11:26 Labs: Abnormal Lab Results - Last 24 Hours (Table) 02/27/19 02/27/19 Range/Units 11:26 11:26 Lymphocytes # 0.6 L (1.0-4.8) k/uL Alkaline Phosphatase 37 L (38-126) U/L Thrombosis Risk Factor Assmnt - DVT/VTE Prophylaxis DVT/VTE Prophylaxis: Pharmacologic Prophylaxis ordered Assessment and Plan Assessment: Atrial flutter with rapid ventricular response -Continue with Cardizem drip, Xarelto -Increase verapamil 100 mg extended release twice daily per EP -Case discussed with Dr. Loo -Tele - had normal outpatient echo per verbal report - possible need for cardioversion, will attempt with control with medications - [facility] TSH HLD - statin The patient is placed in observation with an anticipated less than 2 midnight stay for evaluation of Atrial flutter with RVR. Surrogate decision-maker: CODE STATUS:Full DVT prophylaxis: Xarelto Discussed with: patient, nursing, Dr. Tracy, Dr. Sullivan Anticipated discharge date: 1-[address]: home A total of [55] minutes was spent on the care of this complex patient more than 50% of the time was spent in counseling and care coordination.
--- NOTE | 2019-02-27 17:50 | P.CRDCN ---
History of Present Illness History of present illness: This is Madison Krause PA-C dictating an EP consult on this patient The patient was interviewed and examined by me as well as by Dr. Tracy Case discussed with Dr. Tracy and he agrees with the plan of care IMPRESSION / ASSESSMENT: Atrial tachycardia, cycle length around 210 ms, rapid ventricular response initially, currently rate controlled atrial fibrillation, status post underwent PVI and focal atrial tachycardia ablation in 2017 atrial flutter status post ablation in 2017 Hypertension Dyslipidemia PLAN: Increase verapamil to 100 mg twice a day for rate control Continue Anticoagulation with Xarelto Continue flecainide Check TSH Plan for A. fib/atrial tachycardia ablation in next 1-2 weeks recommend outpatient sleep apnea evaluation HPI Patient is a 58-year-old male with a past medical history of hypertension, dyslipidemia, atrial flutter and atrial fibrillation status post ablation who presented with complaints of palpitations. Last week he was having atypical chest discomfort and underwent a cardiac catheterization which showed normal coronary arteries. After the procedure, he had an episode of atrial tachycardia and was given IV Cardizem. He converted to sinus rhythm and was discharged home. After being discharged, he went back into atrial tachycardia with RVR came back to the hospital. He was treated with flecainide and again converted to sinus rhythm. He was discharged home on flecainide and verapamil. Yesterday around 5 PM, he started to feel " his heart fluttering". Denied dizziness, lightheadedness, chest pain, shortness of breath, diaphoresis or syncope. He was still having palpitations when he went to see his primary care doctor this morning and was sent to the emergency department for further evaluation. Upon admission EKG showed showed atrial tachycardia with 2:1 conduction, ventricular rate 144. He was started on IV Cardizem. Subsequent EKG showed atrial tachycardia with 4:1 conduction, atrial cycle length around 210 ms, ventricular rate 79. Blood pressure has been stable. Patient seen and examined resting in bed. States his symptoms have improved. Denies any chest pain, palpitations, shortness of breath, dizziness or syncope. ROS: No fevers, chills or rigors, no cough, phlegm or expectoration, no nausea, vomiting or diarrhea, no hematuria, dysuria, no musculoskeletal complaints, no strokes or seizures, no skin lesions. EXAMINATION: Patient is afebrile, pulse 80, respirations 17, blood pressure 140/96, oxygen saturation 92% on room air Patient seen and examined resting in bed, in no acute distress Lungs are clear to auscultation bilaterally, no wheezing, rhonchi or crackles Heart is but regular, no murmurs appreciated No elevated JVD No lower extremity edema Abdomen soft, nontender REVIEW OF LABS, ECG & MEDICAL DATA WBC 5.4, hemoglobin 16.5, platelets 240, potassium 4.3, BUN 11, creatinine 0.79, magnesium 2.0, Troponin negative 1 Past Medical History Past Medical History: Atrial Fibrillation, Hyperlipidemia History of Any Multi-Drug Resistant Organisms: None Reported Past Surgical History: Cardiac Ablation, Heart Catheterization, Hernia Repair Past Psychological History: No Psychological Hx Reported Smoking Status: Never smoker Past Alcohol Use History: Occasional Past Drug Use History: None Reported - Past Family History Family Additional Family Medical History / Comment(s): Father with history of coronary artery disease status post CABG Medications and Allergies Home Medications Medication Instructions Recorded Confirmed Type Aspirin [Adult Low Dose Aspirin EC] 81 mg PO HS 04/22/17 02/27/19 History Rosuvastatin [Crestor] 10 mg PO DAILY@1800 04/22/17 02/27/19 History Verapamil HCl [Verelan Pm] 100 mg PO HS 12/04/18 02/27/19 History [place]-3 Fatty Acids/Fish Oil [Fish 1 cap PO DAILY 02/16/19 02/27/19 History Oil 1,000 mg Softgel] Ubidecarenone [Co Q-10] 100 mg PO DAILY 02/16/19 02/27/19 History Rivaroxaban [Xarelto] 20 mg PO DAILY@1800 #30 tab 02/22/19 02/27/19 Rx Flecainide [Tambocor] 50 mg PO Q12HR 02/27/19 02/27/19 History Allergies Allergy/AdvReac Type Severity Reaction Status Date / Time No Known Allergies Allergy Verified 02/27/19 11:08 Physical Exam Vitals: Vital Signs Temp Pulse Resp BP Pulse Ox 02/27/19 12:32 141 H 16 106/87 96 02/27/19 10:35 98.4 F 139 H 18 151/110 99 Intake and Output 02/26/19 02/27/19 02/27/19 22:59 06:59 14:59 Other: Weight 102.058 kg Results 02/27/19 11:26 02/27/19 11:26 Cardiac Enzymes 02/27/19 02/27/19 Range/Units 11:26 11:26 AST 20 (17-59) U/L Troponin I <0.012 (0.000-0.034) ng/mL CBC 02/27/19 Range/Units 11:26 WBC 5.4 (3.8-10.6) k/uL RBC 5.49 (4.30-5.90) m/uL Hgb 16.5 (13.0-17.5) gm/dL Hct 48.5 (39.0-53.0) % Plt Count 240 (150-450) k/uL Comprehensive Metabolic Panel 02/27/19 Range/Units 11:26 Sodium 142 (137-145) mmol/L Potassium 4.3 (3.5-5.1) mmol/L Chloride 107 (98-107) mmol/L Carbon Dioxide 26 (22-30) mmol/L BUN 11 (9-20) mg/dL Creatinine 0.79 (0.66-1.25) mg/dL Glucose 89 (74-99) mg/dL Calcium 9.5 (8.4-10.2) mg/dL AST 20 (17-59) U/L ALT 22 (21-72) U/L Alkaline Phosphatase 37 L (38-126) U/L Total Protein 7.1 (6.3-8.2) g/dL Albumin 4.5 (3.5-5.0) g/dL Current Medications Generic Name Dose Route Start Last Admin Trade Name Freq PRN Reason Stop Dose Admin Diltiazem HCl 125 mg/ Sodium 125 mls @ 10 mls/hr 02/27/19 12:00 02/27/19 12:39 Chloride IV 10 mg/hr .[id number] CARLOS 10 mls/hr Administration 10 MG/HR Intake and Output 02/26/19 02/27/19 02/27/19 22:59 06:59 14:59 Other: Weight 102.058 kg Patient Weight 02/28/19 06:59 Weight 102.058 kg 02/27/19 11:26 02/27/19 11:26
[2019-02-27] MEDS ORDERED: RIVAROXABAN 20 MG TAB PO SCH (18:00)
[2019-02-27] MEDS ORDERED: ATORVASTATIN 20 MG TAB PO SCH (18:00)
[2019-02-27 19:02] VITALS: RESP 18
[2019-02-27] MEDS: FLECAINIDE 50 MG TAB PO SCH (20:25)
[2019-02-27] MEDS: VERAPAMIL SR 120 MG TABLET.ER PO SCH (20:52)
[2019-02-27] MEDS ORDERED: VERAPAMIL SR 120 MG TABLET.ER PO SCH (21:00)
[2019-02-28 06:27] LABS: African American GFR (CKD) >90 (>60 ml/min/1.73 sqM); Anion Gap 9 mmol/L; Blood Urea Nitrogen 12 mg/dL (9-20); Calcium 8.9 mg/dL (8.4-10.2); Carbon Dioxide 25 mmol/L (22-30); Chloride 106 mmol/L (98-107); Glucose 90 mg/dL (74-99); Magnesium 1.9 mg/dL (1.6-2.3); Potassium 4.1 mmol/L (3.5-5.1); Sodium 140 mmol/L (137-145)
[2019-02-28] MEDS: FLECAINIDE 50 MG TAB PO SCH (08:56)
[2019-02-28] MEDS ORDERED: NON FORMULARY DRUG (Ubidecarenone [Co Q-10] 100 MG) PO SCH (09:00)
[2019-02-28 09:20] VITALS: BP 127/73; PULSE 78; TEMP 97.6
[2019-02-28] MEDS: VERAPAMIL SR 120 MG TABLET.ER PO SCH (10:12)
--- NOTE | 2019-02-28 10:26 | P.DS ---
Providers Date of admission: 02/27/19 15:07 Attending physician: Malissa Head MD Consults: 02/27/19 14:14 Consult Physician Urgent Consulting Provider: Dallas Tracy Consult Reason/Comments: AFIB Do you want consulting provider notified?: Yes Primary care physician: Severo Kong [facility] Course: Diagnosis upon discharge: 1. Paroxysmal atrial fibrillation/flutter 2. Essential hypertension 3. HLD HPI: Patient is a 58-year-old male past medical history of dyslipidemia, atrial fibrillation status post ablation, and alcohol use who presented to the emergency department from Dr. Kong's office due to palpitations. Patient was recently admitted from 02/21 through 02/22 for A. fib with RVR that happened during cardiac catheterization. Cardiac catheterization did not show any signif icant disease. At that point in time he was started on Flecanide and verapamil. Xarelto was added and he was seen by Dr. Monsalve. He was discharged home. He did well initially after discharge however he reports that the day prior to admission he felt palpitations that were persistent. In the ER he came that showed atrial flutter with possible 2-1 block rate of 144. He was seen by Dr. Tracy and was started on a Cardizem drip. Arrangements were made for observation for atrial flutter with rapid ventricular response. His heart rate to become control with rate of 70 to 80s on a Cardizem drip however he maintained in Atrial Flutter. Patient seen and examined at bedside in the emergency department. He reports that he initially did well after he went home. He returned to work yesterday. At approximately 5 PM he felt his heart starting to race. He reports that he felt anxious or had a funny feeling. He denied any shortness of breath, lightheaded or dizziness, weakness, or chest pain. He reports that he has been consistent with taking his medications and has not missed any doses. Today he presented to Dr. Kong's office for his scheduled follow-up appointment was found to be persistently tachycardic was therefore referred to the hospital. He denies any recent cough, cold, fever, flu, nausea, vomiting, diarrhea, or dysuria. Hospital course and treatment: Patient was observed in the hospital for atrial flutter with RVR, he was evaluated by cardiology, verbal report on 2-D echo was unremarkable. Verapamil was increased from 100 mg daily to 120 mg twice a day. He converted back to sinus rhythm. He denies any symptoms, no chest pain no shortness of breath no dizziness. TSH 2.5, negative cardiac enzymes. Electrolytes unremarkable. He'll be discharged home if okay with cardiology, plan for outpatient ablation. Patient Condition at Discharge: Good Plan - Discharge Summary New Discharge Prescriptions: New Verapamil Sr [Isoptin Sr] 120 mg PO Q12HR 30 Days #60 tablet.er Discontinued Verapamil HCl [Verelan Pm] 100 mg PO HS No Action Aspirin [Adult Low Dose Aspirin EC] 81 mg PO HS Rosuvastatin [Crestor] 10 mg PO DAILY@1800 Ubidecarenone [Co Q-10] 100 mg PO DAILY [place]-3 Fatty Acids/Fish Oil [Fish Oil 1,000 mg Softgel] 1 cap PO DAILY Rivaroxaban [Xarelto] 20 mg PO DAILY@1800 #30 tab Flecainide [Tambocor] 50 mg PO Q12HR Discharge Medication List Aspirin [Adult Low Dose Aspirin EC] 81 mg PO HS 04/22/17 [History] Rosuvastatin [Crestor] 10 mg PO DAILY@1800 04/22/17 [History] [place]-3 Fatty Acids/Fish Oil [Fish Oil 1,000 mg Softgel] 1 cap PO DAILY 02/16/19 [History] Ubidecarenone [Co Q-10] 100 mg PO DAILY 02/16/19 [History] Rivaroxaban [Xarelto] 20 mg PO DAILY@1800 #30 tab 02/22/19 [Rx] Flecainide [Tambocor] 50 mg PO Q12HR 02/27/19 [History] Verapamil Sr [Isoptin Sr] 120 mg PO Q12HR 30 Days #60 tablet.er 02/28/19 [Rx] Follow up Appointment(s)/Referral(s): Severo Kong MD [Primary Care Provider] - 03/07/19 9:45 am (Tuesday) Vince Rubi MD [STAFF PHYSICIAN] - 2 Weeks (Sleep apnea evaluation) Discharge Disposition: HOME SELF-CARE
[2019-02-28] MEDS: DILTIAZEM 125 MG in SODIUM CHLORIDE 0.9% 100 ML IV SCH (10:42)
--- NOTE | 2019-02-28 16:11 | P.PN ---
Subjective Progress Note Date: 02/28/19 Patient is a 58-year-old male with a past medical history of hypertension, dyslipidemia, atrial flutter and atrial fibrillation status post ablation who presented with complaints of palpitations. Last week he was having atypical chest discomfort and underwent a cardiac catheterization which showed normal coronary arteries. After the procedure, he had an episode of atrial tachycardia and was given IV Cardizem. He converted to sinus rhythm and was discharged home. After being discharged, he went back into atrial tachycardia with RVR came back to the hospital. He was treated with flecainide and again converted to sinus rhythm. He was discharged home on flecainide and verapamil. Yesterday around 5 PM, he started to feel " his heart fluttering". Denied dizziness, lightheadedness, chest pain, shortness of breath, diaphoresis or syncope. He was still having palpitations when he went to see his primary care doctor this morning and was sent to the emergency department for further evaluation. Upon admission EKG showed showed atrial tachycardia with 2:1 conduction, ventricular rate 144. He was started on IV Cardizem. Subsequent EKG showed atrial tachycardia with 4:1 conduction, atrial cycle length around 210 ms, ventricular rate 79. Blood pressure has been stable. Patient seen and examined resting in bed. States his symptoms have improved. Denies any chest pain, palpitations, shortness of breath, dizziness or syncope. 02/28/2019 Patient was seen and examined this morning, currently in normal sinus rhythm. Blood pressure 126/70 with a heart rate in the 70s, 96% on room air. Sodium 140, potassium 4.1, BUN 12 and creatinine 0.8. We will increase the patient's dose of verapamil 220 mg by mouth twice a day, increase flecainide to 100 mg by mouth twice a day. From our perspective he may be able to be discharged home to follow-up with Dr. Monsalve in the office within one week, he will be scheduled for an ablation as an outpatient the first week of March Objective - Vital Signs Vital signs: Vital Signs Temp 97.6 F 02/28/19 08:00 Pulse 78 02/28/19 11:40 Resp 18 02/28/19 08:00 BP 127/73 02/28/19 08:00 Pulse Ox 96 02/28/19 08:00 Intake & Output 02/27/19 02/28/19 02/28/19 18:59 06:59 18:59 Intake Total 82.167 Output Total 400 Balance -317.833 Weight 102.058 kg 100.2 kg Intake: Intake, IV Titration 82.167 Amount Diltiazem 125 mg In 82.167 Sodium Chloride 0.9% 100 ml @ 10 MG/HR 10 mls/hr IV .[id number] [facility] Rx#: [id number] Output: Urine 400 Other: Voiding Method Toilet - Exam Patient seen and examined resting in bed, in no acute distress Lungs are clear to auscultation bilaterally, no wheezing, rhonchi or crackles Heart is but regular, no murmurs appreciated No elevated JVD No lower extremity edema Abdomen soft, nontender - Labs CBC & Chem 7: 02/27/19 11:26 02/28/19 05:14 Labs: Microbiology - Last 24 Hours (Table) 02/27/19 18:29 Blood Culture Gram Stain - Preliminary Blood 02/27/19 18:29 Blood Culture - Final Blood Assessment and Plan Plan: IMPRESSION / ASSESSMENT: #1 Atrial tachycardia, cycle length around 210 ms, rapid ventricular response initially, currently in normal sinus rhythm, rate controlled #2 paroxysmal atrial fibrillation, status post underwent PVI and focal atrial tachycardia ablation in 2017 #3 typical atrial flutter status post ablation in 2017 #4 Hypertension #5 Dyslipidemia Plan From cardiology's perspective, patient may be able to be discharged home today, we'll make him a follow-up appointment to see Dr. Monsalve in the office within one week. Verapamil will be increased to 120 mg by mouth twice a day, flecainide increased to 100 mg twice a day. Ablation will be scheduled as an outpatient the first week of March. DNP note has been reviewed, I agree with a documented findings and plan of care. Patient was seen and examined.
--- NOTE | 2019-02-28 20:36 | P.PN ---
Progress Note - Text Progress Note Date: 02/28/19 Received a call regarding the patient's blood culture results of coag negative staph. Reviewed the patient's chart. The patient was admitted for palpitations and tachycardia due to Aflutter w/ RVR. The patient was afebrile and had no leukocytosis. Furthermore, there was no suspicion of an infectious etiology. The coag-negative staph is likely a skin contaminant. No further workup advised at this time.
[2019-02-28] MEDS ORDERED: FLECAINIDE 50 MG TAB PO SCH (21:00)
== END 2019-02-28 12:48 | disposition home or self-care (01) ==
LOC: EC 10:32 → 3SCARD 15:07
PROVIDERS: ADMIT Family Medicine; ATTEND Family Medicine
DX: I48.0 Paroxysmal atrial fibrillation (principal); I48.1 Persistent atrial fibrillation; I47.1 Supraventricular tachycardia; I48.92 Unspecified atrial flutter; I10 Essential (primary) hypertension; E78.5 Hyperlipidemia, unspecified; Z79.82 Long term (current) use of aspirin; Z79.899 Other long term (current) drug therapy; Z79.01 Long term (current) use of anticoagulants; Z82.49 Family history of ischemic heart disease and other diseases of the circulatory system
CPT/HCPCS: 96374; 99285; 36415; 93005; 80053; 80048; 84443; 83735 ×2; 84484; 85025; 87040; 87077; 87186; G0378 ×2

== ENCOUNTER 2019-03-15 09:54 | Day surgery (SDC) | payer BC ==
[2019-03-13 09:57] VITALS: BMI 28.8
[2019-03-15] MEDS ORDERED: SODIUM CHLORIDE 0.9% 1,000 ML IV ONE (10:36)
[2019-03-15] MEDS ORDERED: PHENYLEPHRINE-0.9% NACL SYG 1 MG/10 ML SYRINGE ONE (13:14)
[2019-03-15] MEDS ORDERED: PROTAMINE SULFATE 10 MG/ML 5 ML VIAL IV ONE (13:14)
[2019-03-15] MEDS ORDERED: HEPARIN SODIUM,PORCINE 10,000 UNIT/ML 1 ML VIAL ONE (13:14)
[2019-03-15] MEDS ORDERED: SUCCINYLCHOLINE CHLORIDE 100 MG/5 ML SYR IV ONE (13:14)
[2019-03-15] MEDS ORDERED: ONDANSETRON 4 MG/2 ML VIAL ONE (13:14)
[2019-03-15] MEDS ORDERED: ROCURONIUM BROMIDE 10 MG/ML 10 ML VIAL IV ONE (13:14)
[2019-03-15] MEDS ORDERED: ISOPROTERENOL 250 MCG/1.25 ML SYR IV ONE (13:14)
[2019-03-15] MEDS ORDERED: fentaNYL (PF) 50 MCG/ML 2 ML AMP ONE (13:14)
[2019-03-15] MEDS ORDERED: MIDAZOLAM 2 MG/2 ML VIAL ONE (13:14)
[2019-03-15] MEDS ORDERED: PROPOFOL 10 MG/ML 20 ML VIAL IV ONE (13:14)
[2019-03-15] MEDS ORDERED: HYDROmorphone (PF) 1 MG/ML ONE (13:14)
[2019-03-15] MEDS ORDERED: HEPARIN SODIUM 1,000 UN/ML (10ML VL) ONE (13:26)
[2019-03-15] MEDS ORDERED: LIDOCAINE 1% INJ 10MG/ML (20 ML MDV) ONE (13:29)
[2019-03-15] MEDS ORDERED: HEPARIN SODIUM (1,000 UNIT/ML) 1,000 UNIT in SODIUM CHLORIDE 0.9% 1,000 ML IRRIGATION ONE (13:30)
[2019-03-15] MEDS ORDERED: LIDOCAINE 1% INJ 10MG/ML (20 ML MDV) SQ ONE (14:09)
[2019-03-15] MEDS ORDERED: HEPARIN SOD,PORK IN 0.45% NACL 25,000 UNIT in 0.45% NACL 1 250ML.BAG IV ONE (14:50)
[2019-03-15] MEDS ORDERED: HYDROcodone/APAP 5-325MG 1 EACH TAB PO PRN (17:27)
[2019-03-15] MEDS ORDERED: ACETAMINOPHEN TAB 325 MG TAB PO PRN (17:27)
[2019-03-15] MEDS ORDERED: ACETAMINOPHEN IV (For NPO) 1,000 MG in EMPTY BAG 1 BAG IVPB ONE (17:27)
[2019-03-15] MEDS ORDERED: ATORVASTATIN 20 MG TAB PO SCH (18:00)
[2019-03-15] MEDS ORDERED: RIVAROXABAN 20 MG TAB PO SCH (18:00)
[2019-03-15] MEDS ORDERED: IV FLUID CONTINUATION 500 ML IV ONE ×2 (18:02)
[2019-03-15] MEDS: SODIUM CHLORIDE 0.9% 1,000 ML IV SCH ×2 (19:27→20:03)
[2019-03-15] MEDS: LACTATED RINGERS 1,000 ML IV SCH (19:27)
[2019-03-16] MEDS: LACTATED RINGERS 1,000 ML IV SCH (05:20)
--- NOTE | 2019-03-16 07:17 | CE ---
CARDIAC ELECTROPHYSIOLOGY REPORT A 58-year-old male patient with atrial tachycardia with RVR with difficult rate control, shortness of breath, tiredness, fatigue, and on multiple antiarrhythmic drugs and AV daniel blocking drugs. Patient was brought to the EP lab in a fasting state. Written informed consent was obtained prior to the procedure. The left and right groins were prepped and draped as per protocol. Venous sheaths were placed in the right and left femoral veins and via these diagnostic mapping ablation catheters were placed including intracardiac echo catheter, coronary sinus catheter, catheter in the high right atrium, His bundle area, right ventricle and later in the left atrium, the PentaRay and full mapping ablation catheter. The patient was in tachycardia at the start of the study. The tachycardia cycle length was about 209 milliseconds. Intracardiac echocardiography was performed. A 3D electroanatomic mapping was performed. Left and right atrial appendages were identified. No intracardiac mass or thrombus was noted. Patient was on Xarelto 20 mg p.o. daily. The tachycardia cycle length was 205 milliseconds. Later, the sinus cycle length was 795 milliseconds, FL interval 145 milliseconds, QRS 99 milliseconds, QT 391 milliseconds. The AH interval 67, HV interval 41 milliseconds. The right atrial pressures 11 x 5 x 8 mmHg and LA pressures 21 x 2 x 11 mmHg. 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 Sheath was placed in the left atrium. PentaRay catheter was placed. A 3D electroanatomic activation mapping of the left atrium was performed. The pulmonary veins were completely isolated at an antral level. Activation mapping suggested the reactivation was sweeping around the mitral anulus. There was also secondary sweep around the left atrium through the roof. The roof and a narrow gap between the antral ablation of the right-sided and left-sided veins. RF ablation of the left atrial roof was performed and this resulted in lengthening of the tachycardia but not termination. A complete line of block was made and later in sinus rhythm this line was interrogated with mapping as well as with high-output pacing to document noncapture all along the line. The mitral isthmus was identified and RF line of block was made at about 2 o'clock position from the left inferior pulmonary vein to the mitral anulus. This resulted in termination of the tachycardia. Following that, a complete line of block was made. Noncapture was documented along the line. Split potentials of 135 milliseconds were noted. Pacing was documented that there was bidirectional block with differential pacing around the mitral anulus. Thereafter, a full EP study was performed. Sinus node recovery times at 600, 500 and 400 milliseconds were 1239, 1282 and 1409 milliseconds. The corresponding corrected sinus node recovery times are prolonged with pacing cycle length of 400 milliseconds. AV node Wenckebach block 400 milliseconds, VA Wenckebach block greater than 600 milliseconds. High-dose Isuprel was used and no atrial fibrillation was induced, only occasional PACs were induced. In the baseline state, post ablation sinus cycle length was 908 milliseconds, FL interval 120 milliseconds, QRS 81 milliseconds, QT 395 milliseconds. RESULT: Diagnostic EP study revealin. 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 2. 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 The patient tolerated the procedure well without any acute complications. Intracardiac echo at the end of the procedure did not reveal any pericardial effusion. There was normal LV function noted. Of note, left atrial size was 5.7 x 6.1 mm in orthogonal dimension. The patient tolerated the procedure well without any acute complications. PLAN: Continue Xarelto. Stop flecainide. Stop metoprolol. Stop the verapamil. MMODL / IJN: [id number] /
--- NOTE | 2019-03-16 07:22 | LTR ---
March 14, 2019 Re: Silvino Carpenter Dear Severo: Silvino Carpenter underwent mapping ablation of his tachycardia. He had a re-entry around the mitral valve as a primary circuit and a secondary circuit was noted in the roof of the left atrium. Successful ablation was performed and the tachycardia was terminated and was rendered noninducible. His previous ablations were durable. The pulmonary veins were completely isolated at an antral level. Hopefully this renders him free of atrial tachycardias for a long, long time. Thank you for entrusting me in the care of your patient. Warm regards. Sincerely, Dallas Tracy MD MMANAL / BISIN: [id number] /
--- NOTE | 2019-03-16 08:18 | P.DS ---
Providers Attending physician: Dallas Tracy Primary care physician: [place] Hospital Course: Patient is doing well. Resting comfortably in bed but has ambulated in the room and got up to the bathroom No chest discomfort dizziness lightheadedness No sore throat no cough expectoration No dizziness lightheadedness or palpitations On examination, blood pressure 114/69 mmHg respirations normal pulse rate in the 70s afebrile 98.1F Breath sounds are clear no rhonchi no crackles Heart sounds S1 and S2 are normal no murmurs no gallops no rub Abdomen soft nontender Extremities are warm no edema No JVD Impression Atrial tachycardia, mitral reentry, successful termination with RF ablation Bidirectional block with differential pacing and widely split potentials all across the RF line documented with pacing maneuvers Split potentials of 135 ms uniformly across the line Non-capture along the line Atrial tachycardia, left atrial roof reentry, successful ablation, non-capture along the line, scar mapping performed postprocedure Previous RF ablations were interrogated Pulmonary veins a completely isolated at and antral/atrial level No other inducible arrhythmias other than PACs Suggest Stop verapamil, stop metoprolol, stop flecainide Continue ELIQUIS Continue rosuvastatin Patient may be discharged home later this evening at 5 PM if hemodynamically stable groins healing well and no symptoms Follow-up within one week I expect he will have PACs in the future If he does a twelve-lead ECG should be performed to confirm that this is sinus with PACs rather than atrial fibrillation Plan - Discharge Summary Discharge Rx Participant: Yes New Discharge Prescriptions: Discontinued Verapamil Sr [Isoptin Sr] 120 mg PO Q12HR 30 Days #60 tablet.er Flecainide [Tambocor] 100 mg PO Q12HR 30 Days #60 tablet Metoprolol Succinate [Toprol XL] 25 mg PO BID No Action Rosuvastatin [Crestor] 10 mg PO DAILY@1800 Ubidecarenone [Co Q-10] 100 mg PO DAILY [place]-3 Fatty Acids/Fish Oil [Fish Oil 1,000 mg Softgel] 1 cap PO DAILY Rivaroxaban [Xarelto] 20 mg PO DAILY@1800 #30 tab Discharge Medication List Rosuvastatin [Crestor] 10 mg PO DAILY@1800 04/22/17 [History] [place]-3 Fatty Acids/Fish Oil [Fish Oil 1,000 mg Softgel] 1 cap PO DAILY 02/16/19 [History] Ubidecarenone [Co Q-10] 100 mg PO DAILY 02/16/19 [History] Rivaroxaban [Xarelto] 20 mg PO DAILY@1800 #30 tab 02/22/19 [Rx] Follow up Appointment(s)/Referral(s): Dallas Tracy MD [STAFF PHYSICIAN] - 1 Week (follow up with Dr. Tracy/Madison Krause/Sara Velázquez in one week) Activity/Diet/Wound Care/Special Instructions: Post EP study - Ablation instructions 1. Keep access sites dry for 2 days. 2. No heavy lifting or straining for 2 days. 3. Avoid bending the hips repeatedly for 2 days. 4. You may go up and down stairs slowly Call if the following is noted 1. Bleeding, increasing swelling or pain at the access sites. 2. Increasing chest discomfort, especially upon taking a deep breath. 3. Increasing shortness of breath, at rest or with exertion. 4. Undue cough / phlegm 5. Difficulty or pain while swallowing. 6. Pain or change in color in the extremities. 7. Fever, chills, rigors. 8. Increasing headache or neurologic symptoms. 9. Dizziness, fainting, palpitations Stop your flecainide, metoprolol and verapamil, continue the eliquis and Crestor/rosuvastatin Follow up in 1 week Impression echo from a cardiac standpoint by 5 PM if hematology stable groins healing well follow-up with Dr. Tracy within one week
[2019-03-16 09:36] VITALS: RESP 18
[2019-03-16 12:17] VITALS: BP 120/71; PULSE 63; TEMP 98.1
== END 2019-03-16 15:55 | disposition home or self-care (01) ==
LOC: CATHEP 09:54 → 1SOBS 17:23 → CATHEP 03-16 15:55
PROVIDERS: ATTEND Internal Medicine Clinical Cardiac Electrophysiology
DX: E78.49 Other hyperlipidemia (principal); I65.29 Occlusion and stenosis of unspecified carotid artery; Z79.01 Long term (current) use of anticoagulants; Z79.899 Other long term (current) drug therapy; Z82.49 Family history of ischemic heart disease and other diseases of the circulatory system
CPT/HCPCS: 85347; 93623; 93662; 93613; 93656; C1769 ×5; C1894; C1730; C1731; C1759; C1893; C1732; J2250; J2720; J1644 ×3; J2405; J2001; J3010; J1170; J2370; J0330; J2704

== ENCOUNTER → 2019-07-30 | Outpatient (CLI) | payer BC ==
--- NOTE | 2019-07-31 03:05 | MR ---
EXAMINATION TYPE: MR brain wo/w con DATE OF EXAM: 07/30/2019 COMPARISON: None HISTORY: Left upper extremity tremor CONTRAST: Standard multiplanar, multisequence MRI departmental protocol utilizing 10 mL intravenous Gadavist ga dolinium contrast. Ventricles have normal size. There is no mass effect nor midline shift. There is no sign of intracran ial hemorrhage. Diffusion images show no evidence of cortical infarct. Brainstem is intact. Corpus ca llosum is intact. Sella turcica appears normal. There is no evidence of posterior fossa mass. There i s normal contrast opacification of the venous sinuses. I see no pathologic enhancement. There is no e vidence of cerebral edema. There is mucus retention cyst right maxillary sinus. IMPRESSION: Negative MR scan of the brain.
== END | disposition home or self-care (01) ==
LOC: RADMRIMAIN 19:33
PROVIDERS: ATTEND Psychiatry & Neurology Neurology
DX: R29.2 Abnormal reflex (principal); D43.2 Neoplasm of uncertain behavior of brain, unspecified; R25.1 Tremor, unspecified
CPT/HCPCS: 70553; A9585

== ENCOUNTER 2021-03-11 08:08 | Day surgery (SDC) | payer BC ==
[2021-03-09 11:20] VITALS: BMI 27.6
[~2021-03-11 08:08] MED LIST changes: -ALPRAZolam 0.25 MG TAB PO PRN; -ALPRAZolam 0.5 MG TAB PO PRN; -ASPIRIN 325 MG TAB PO STA; -ATORVASTATIN 80 MG TAB PO STA; +LACTATED RINGERS 1,000 ML IV SCH; +LIDOCAINE 1% (10MG/ML) FOR IV START INTRADERMA PRN; -NITROGLYCERIN SL TABS 0.4 MG TAB SUBLINGUAL PRN; -SODIUM CHLORIDE 0.9% 1,000 ML in EMPTY BAG 1 BAG IV ONE
[2021-03-11 08:27] VITALS: TEMP 96.8
[2021-03-11] MEDS ORDERED: PROPOFOL 10 MG/ML 20 ML VIAL IV ONE (08:59)
--- NOTE | 2021-03-11 09:25 | P.PCN ---
Date of Procedure: 03/11/21 Procedure(s) Performed: BRIEF HISTORY: Patient is a 60-year-old pleasant white male scheduled for an elective colonoscopy as a part of screening for colorectal neoplasia. PROCEDURE PERFORMED: Colonoscopy With snare polypectomy PREOPERATIVE DIAGNOSIS: Screening for colon cancer. IV sedation per Anesthesia. PROCEDURE: After informed consent was obtained, the patient, was brought into the endoscopy unit. IV sedation was administered by Anesthesia under continuous monitoring. Digital rectal examination was normal. Initially the Olympus CF-160 flexible video colonoscope was then inserted in the rectum, gradually advanced into the cecum without any difficulty. Careful examination was performed as the scope was gradually being withdrawn. Ileocecal valve and the appendiceal orifice were visualized and appeared normal. Prep was .fair.f the cecum, ascending colon, transverse colon, be normal. The descending colon there was a 5-6 mm sessile polyp removed by snare polypectomy. Rest of the descending colon, sigmoid colon, and rectum appeared normal. Retroflexion was performed in the rectum and no lesions were seen. The patient tolerated the procedure well. IMPRESSION: 5-6 mm descending colon polyp status post polypectomy Rest of the Colon appeared normal RECOMMENDATIONS: Findings of this examination were discussed with the patient as well as his family. He was advised to follow with the biopsy results. If the biopsy reveals adenoma he can have a repeat colonoscopy in 5 years
[2021-03-11 09:55] VITALS: BP 137/77; PULSE 55; RESP 18
== END 2021-03-11 10:11 | disposition home or self-care (01) ==
LOC: ORWHC2ENDO 08:08
PROVIDERS: ATTEND Internal Medicine Gastroenterology
DX: Z12.11 Encounter for screening for malignant neoplasm of colon (principal); D12.4 Benign neoplasm of descending colon; I10 Essential (primary) hypertension; E78.5 Hyperlipidemia, unspecified; I48.91 Unspecified atrial fibrillation; G20 Parkinson's disease; Z79.899 Other long term (current) drug therapy
CPT/HCPCS: 45385; J2704; 88305

== ENCOUNTER 2023-06-27 05:40 | Day surgery (SDC) | payer BC ==
[~2023-06-27 05:40] MED LIST changes: +ACETAMINOPHEN TAB 500 MG TAB PO PRN; +HEPARIN SODIUM,PORCINE 5,000 UNIT/ML 1 ML VIAL SQ PRN; -LACTATED RINGERS 1,000 ML IV SCH; -LIDOCAINE 1% (10MG/ML) FOR IV START INTRADERMA PRN
[2023-06-27] MEDS ORDERED: HYDROmorphone 0.5 MG/0.5 ML SYRINGE IVP PRN (06:12)
[2023-06-27] MEDS ORDERED: LACTATED RINGERS 1,000 ML IV SCH (06:12)
[2023-06-27] MEDS ORDERED: LIDOCAINE 1% (10MG/ML) FOR IV START INTRADERMA PRN (06:12)
[2023-06-27] MEDS ORDERED: ONDANSETRON 4 MG/2 ML VIAL IVP ONE (06:12)
[2023-06-27] MEDS ORDERED: fentaNYL (PF) 50 MCG/ML 2 ML AMP IVP PRN (06:12)
[2023-06-27] MEDS ORDERED: MIDAZOLAM 2 MG/2 ML VIAL IV PRN (06:12)
[2023-06-27] MEDS ORDERED: DEXAMETHASONE SOD PHOSPHATE 4 MG/ML 1 ML VIAL IV ONE (06:12)
[2023-06-27] MEDS ORDERED: TAMSULOSIN 0.4 MG CAP.ER.24H PO ONE (07:21)
--- NOTE | 2023-06-27 07:21 | P.GSHP ---
History of Present Illness H&P Date: 06/27/23 Chief Complaint: Right inguinal hernia 62-year-old male here for elective repair right inguinal hernia. Has had a bulge there for many months. Increasing in size. Mild soreness. Nonsmoker. History of previous open left inguinal hernia repair many years ago. Past Medical History Past Medical History: Atrial Fibrillation, Hyperlipidemia, Hypertension, Musculoskeletal Disorder Additional Past Medical History / Comment(s): PARKINSON'S History of Any Multi-Drug Resistant Organisms: None Reported Past Surgical History: Cardiac Ablation, Heart Catheterization, Hernia Repair Additional Past Surgical History / Comment(s): COLONOSCOPY Past Anesthesia/Blood Transfusion Reactions: No Reported Reaction Past Psychological History: Depression Smoking Status: Never smoker Past Alcohol Use History: Occasional Past Drug Use History: None Reported - Past Family History Family Additional Family Medical History / Comment(s): Father with history of coronary artery disease status post CABG Medications and Allergies Home Medications Medication Instructions Recorded Confirmed Type Rosuvastatin [Crestor] 10 mg PO DAILY@1800 04/22/17 06/27/23 History Ubidecarenone [Co Q-10] 200 mg PO DAILY 02/16/19 06/27/23 History Carbidopa/Levodopa [Sinemet 25-100 1 each PO BID 03/09/21 06/27/23 History mg Tablet] DULoxetine HCL [Cymbalta] 40 mg PO QAM 03/09/21 06/27/23 History Losartan [Cozaar] 25 mg PO HS 03/09/21 06/27/23 History Allergies Allergy/AdvReac Type Severity Reaction Status Date / Time No Known Allergies Allergy Verified 06/27/23 06:28 Surgical - Exam Vital Signs Temp Pulse Resp BP Pulse Ox 97.4 F L 60 18 133/68 98 06/27/23 07:08 06/27/23 07:08 06/27/23 07:08 06/27/23 07:08 06/27/23 07:08 Physical exam: General: Well-developed, well-nourished HEENT: Normocephalic, sclerae nonicteric Abdomen: Nontender, nondistended, reducible right inguinal hernia Extremities: No edema Neuro: Alert and oriented Assessment and Plan (1) Right inguinal hernia Narrative/Plan: 62-year-old male with right inguinal hernia. We'll proceed with laparoscopic da Talia assisted repair right inguinal hernia with mesh, possible open, possible bilateral. Risks of bleeding, infection, recurrence, bladder and bowel injury, numbness, nerve injury, conversion to an open procedure were discussed with the patient. The patient understands and wishes to proceed. Current Visit: Yes Status: Acute Code(s): K40.90 - UNIL INGUINAL HERNIA, W/O OBST OR GANGR, NOT SPCF RECUR SNOMED Code(s): 537148511
[2023-06-27] MEDS ORDERED: MIDAZOLAM 2 MG/2 ML VIAL ONE (07:25)
[2023-06-27] MEDS ORDERED: PROPOFOL 10 MG/ML 20 ML VIAL IV ONE (07:25)
[2023-06-27] MEDS ORDERED: NEOSTIGMINE 1 MG/ML 10 ML VIAL ONE (07:25)
[2023-06-27] MEDS ORDERED: GLYCOPYRROLATE 0.2 MG/ML 2 ML VIAL ONE (07:25)
[2023-06-27] MEDS ORDERED: ROCURONIUM 10 MG/ML (5 ML VIAL) IV ONE (07:25)
[2023-06-27] MEDS ORDERED: fentaNYL (PF) 50 MCG/ML 2 ML AMP ONE (07:25)
[2023-06-27] MEDS ORDERED: LIDOCAINE 1% INJ 10MG/ML (20 ML MDV) ONE (07:25)
[2023-06-27] MEDS ORDERED: SUCCINYLCHOLINE CHLORIDE 200 MG/10 ML VIAL IV ONE (07:25)
[2023-06-27] MEDS ORDERED: BUPIVACAINE (PF) 0.25% 30 ML VIAL SQ ONE (07:57)
[2023-06-27 09:38] VITALS: RESP 16; TEMP 97.2
[2023-06-27 10:49] VITALS: BP 120/72; PULSE 63
--- NOTE | 2023-06-27 11:38 | P.OP ---
Date of Procedure: 06/27/23 Procedure(s) Performed: PREOPERATIVE DIAGNOSIS: Right inguinal hernia POSTOPERATIVE DIAGNOSIS: Same PROCEDURE: Laparoscopic da Talia assisted repair right inguinal hernia with mesh SURGEON: Dr. Iraheta ANESTHESIA: General OPERATIVE PROCEDURE DETAILS: Patient was placed in the operating table in the supine position. The patient was placed under general anesthesia. The abdomen was prepped and draped in usual sterile fashion. A small curvilinear supraumbilical incision was made. The fascia was retracted anteriorly with Brimson forceps. The Veress needle was inserted. The saline drop test was normal. Insufflation took place to 15 mmHg. An 8 mm trocar was placed into the peritoneal cavity. 2 additional 8 mm trochars were placed in the right upper quadrant and left upper quadrant under visualization. The robotic arms were then brought in and docked into place. The fenestrated bipolar was used in the left arm and the laparoscopic margaux was utilized in the right arm. A 30 8 mm scope was used in the up position. The peritoneal cavity was inspected. The patient had a right indirect hernia sac on the right side containing omentum. The omentum was able to be reduced without difficulty. The peritoneum was incised in a horizontal fashion cephalad to the internal inguinal ring. Foll owing that careful dissection of the preperitoneal space took place. This took place using both electrocautery, sharp dissection but primarily blunt dissection. Visualization of the pubic tubercle and Chuckie's ligament took place medially. Full dissection took place laterally as well. The hernia sac was fully dissected. A small direct hernia was also identified medially and repaired simultaneously. Once we had adequate space the [id number] Progrip mesh was advanced into the preperitoneal space and flattened out appropriately to cover all potential hernia sites. A 30V lock suture was used to secure the mesh to the Chuckie's ligament extending medially to the pubic tubercle and then anteriorly along the abdominal wall. The peritoneal defect was then closed using a absorbable 2-0 VLok suture. The hernia sac was incorporated and closed with the peritoneal closure to help prevent future recurrence. The pneumoperitoneum was then evacuated. The skin of all 3 sites was closed using a 4-0 Monocryl stitch. Skin glue was then applied. TYPE OF MESH USED: Progrip LOCATION OF MESH: Preperitoneal FIXATION: 30 absorbable the lock PREOPERATIVE DISCUSSION ON SMOKING CESSASTION: Yes PREOPERATIVE DISCUSSION ON MORBID OBESITY: Yes PREOPERATIVE DISCUSSION ON APPROPRIATE USE OF NARCOTIC USE: Yes PREOPERATIVE EDUCATION: Multi Modal, Smoking Cessation and Weight Loss with BMI over 35. DISPOSITION: Stable to recovery room
[2023-06-27] MEDS ORDERED: ACETAMINOPHEN TAB 325 MG TAB PO SCH (12:00)
[2023-06-27] MEDS ORDERED: IBUPROFEN 600 MG TAB PO SCH (12:15)
== END 2023-06-27 11:09 | disposition home or self-care (01) ==
LOC: OR 05:40
PROVIDERS: ATTEND Surgery
DX: K40.90 Unilateral inguinal hernia, without obstruction or gangrene, not specified as recurrent (principal); E78.5 Hyperlipidemia, unspecified; G20.A1 Parkinson's disease without dyskinesia, without mention of fluctuations; I10 Essential (primary) hypertension; I48.91 Unspecified atrial fibrillation; F10.90 Alcohol use, unspecified, uncomplicated; F32.A Depression, unspecified; Z79.899 Other long term (current) drug therapy; Z79.82 Long term (current) use of aspirin
CPT/HCPCS: 49650; S2900

== ENCOUNTER 2023-06-29 06:34 | Emergency (ER) | payer BC ==
[2023-06-29 06:48] VITALS: RESP 18
--- NOTE | 2023-06-29 07:01 | ED ---
Male Urogenital HPI - General Chief complaint: Urogenital Stated complaint: Possible UTI Time Seen by Provider: 06/29/23 06:58 Source: patient, RN notes reviewed Mode of arrival: ambulatory Limitations: no limitations - History of Present Illness Initial comments: This a 62-year-old male presents emergency Department chief complaint unable to urinate. Patient had surgery on Tuesday when she had a wall hernia repair. He states she's getting small multi urine output states he feels a large amount of pressure. Patient denies any fevers chills no history UTIs - Related Data Home Medications Medication Instructions Recorded Confirmed Rosuvastatin [Crestor] 10 mg PO DAILY@1800 04/22/17 06/27/23 Ubidecarenone [Co Q-10] 200 mg PO DAILY 02/16/19 06/27/23 Carbidopa/Levodopa [Sinemet 25-100 1 each PO BID 03/09/21 06/27/23 mg Tablet] DULoxetine HCL [Cymbalta] 40 mg PO QAM 03/09/21 06/27/23 Losartan [Cozaar] 25 mg PO HS 03/09/21 06/27/23 Previous Rx's Medication Instructions Recorded oxyCODONE HCL [OxyIR] 5 mg PO Q6H PRN 3 Days #6 tab 06/27/23 Allergies Allergy/AdvReac Type Severity Reaction Status Date / Time No Known Allergies Allergy Verified 06/29/23 06:44 Review of Systems ROS Statement: Those systems with pertinent positive or pertinent negative responses have been documented in the HPI. ROS Other: All systems not noted in ROS Statement are negative. Past Medical History Past Medical History: Atrial Fibrillation, Hyperlipidemia, Hypertension, Musculoskeletal Disorder Additional Past Medical History / Comment(s): PARKINSON'S History of Any Multi-Drug Resistant Organisms: None Reported Past Surgical History: Cardiac Ablation, Heart Catheterization, Hernia Repair Additional Past Surgical History / Comment(s): COLONOSCOPY Past Anesthesia/Blood Transfusion Reactions: No Reported Reaction Past Psychological History: No Psychological Hx Reported Smoking Status: Never smoker Past Alcohol Use History: Occasional Past Drug Use History: None Reported - Past Family History Family Additional Family Medical History / Comment(s): Father with history of coronary artery disease status post CABG General Exam Limitations: no limitations General appearance: alert, in no apparent distress Head exam: Present: atraumatic, normocephalic, normal inspection Respiratory exam: Present: normal lung sounds bilaterally. Absent: respiratory distress, wheezes, rales, rhonchi, stridor Cardiovascular Exam: Present: regular rate, normal rhythm, normal heart sounds. Absent: systolic murmur, diastolic murmur, rubs, gallop, clicks GI/Abdominal exam: Present: soft, normal bowel sounds. Absent: distended, tenderness, guarding, rebound, rigid Course Vital Signs 06/29/23 06/29/23 06:41 08:07 Temperature 98 F 98.1 F Pulse Rate 95 72 Respiratory 18 18 Rate Blood Pressure 132/75 129/89 O2 Sat by Pulse 97 97 Oximetry Medical Decision Making - Medical Decision Making Was pt. sent in by a medical professional or institution (, QUINTIN, GARAGE ATTENDANT, urgent care, hospital, or alf...) When possible be specific @ -No Did you speak to anyone other than the patient for history (EMS, parent, family, police, friend...)? What history was obtained from this source @ -No Did you review nursing and triage notes (agree or disagree)? Why? @ -I reviewed and agree with nursing and triage notes Were old charts reviewed (outside hosp., previous admission, EMS record, old EKG, old radiological studies, urgent care reports/EKG's, alf records)? Report findings @ -Reviewed recent surgical no Differential Diagnosis (chest pain, altered mental status, abdominal pain women, abdominal pain men, vaginal bleeding, weakness, fever, dyspnea, syncope, headache, dizziness, GI bleed, back pain, seizure, CVA, palpatations, mental health, musculoskeletal)? @ -Urinary tract infection, urinary retention EKG interpreted by me (3pts min.). @ -None X-rays interpreted by me (1pt min.). @ -None done CT interpreted by me (1pt min.). @ -None done U/S interpreted by me (1pt. min.). @ -None done What testing was considered but not performed or refused? (CT, X-rays, U/S, labs)? Why? @ -None What meds were considered but not given or refused? Why? @ -None Did you discuss the management of the patient with other professionals (professionals i.e. QUINTIN Zeng, GARAGE ATTENDANT, lab, RT, psych nurse, forensic social worker, auto parts professional, teacher, hearing officer, rn case management)? Give summary @ -No Was smoking cessation discussed for >3mins.? @ -No Was critical care preformed (if so, how long)? @ -No Were there social determinants of health that impacted care today? How? (Homelessness, low income, unemployed, alcoholism, drug addiction, transpo rtation, low edu. Level, literacy, decrease access to med. care, long-term, rehab)? @ -No Was there de-escalation of care discussed even if they declined (Discuss DNR or withdrawal of care, Hospice)? DNR status @ -No What co-morbidities impacted this encounter? (DM, HTN, Smoking, COPD, CAD, Cancer, CVA, ARF, Chemo, Hep., AIDS, mental health diagnosis, sleep apnea, morbid obesity)? @ -None Was patient admitted / discharged? Hospital course, mention meds given and route, prescriptions, significant lab abnormalities, going to OR and other pertinent info. @ -Discharge patient had a urinary retention Gross catheter placed by RN patient had 1 L of urine drained, patient felt greatly improved no evidence UTI patient discharged with Gross catheter Undiagnosed new problem with uncertain prognosis? @ -No Drug Therapy requiring intensive monitoring for toxicity (Heparin, Nitro, Insulin, Cardizem)? @ -No Were any procedures done? @ -No Diagnosis/symptom? @ -Urinary retention Acute, or Chronic, or Acute on Chronic? @ -Acute Uncomplicated (without systemic symptoms) or Complicated (systemic symptoms)? @ -[Uncomplicated Side effects of treatment? @ -No Exacerbation, Progression, or Severe Exacerbation? @ -No Poses a threat to life or bodily function? How? (Chest pain, [place], [place], pneumonia, PE, COPD, DKA, ARF, appy, cholecystitis, CVA, Diverticulitis, Homicidal, Suicidal, threat to staff... and all critical care pts) @ -No - Lab Data Lab Results 06/29/23 Range/Units 06:47 Urine Color Yellow Urine Appearance Clear (Clear) Urine pH 5.5 (5.0-8.0) Ur Specific [place] 1.015 (1.001-1.035) Urine Protein Negative (Negative) Urine Glucose (UA) Negative (Negative) Urine Ketones 1+ H (Negative) Urine Blood Trace H (Negative) Urine Nitrite Negative (Negative) Urine Bilirubin Negative (Negative) Urine Urobilinogen <2.0 (<2.0) mg/dL Ur Leukocyte Esterase Negative (Negative) Urine RBC 8 H (0-5) /hpf Urine WBC 3 (0-5) /hpf Urine Mucus Rare H (None) /hpf Disposition Clinical Impression: Urinary retention Disposition: HOME SELF-CARE Condition: Stable Instructions (If sedation given, give patient instructions): Urinary Retention in Men (ED) Additional Instructions: Please return to the Emergency Department if symptoms worsen or any other concerns. Is patient prescribed a controlled substance at d/c from ED?: No Referrals: Samy Bullard MD [Primary Care Provider] - 1-2 days Alexandru Waldron MD [STAFF PHYSICIAN] - 1-2 days Time of Disposition: 07:43
[2023-06-29 07:22] LABS: Appearance,Urine Clear (Clear); Bilirubin,Urine Negative (Negative); Blood,Urine Trace (Negative); Color,Urine Yellow; Glucose,Urine (UA) Negative (Negative); Ketones,Urine 1+ (Negative); Leukocyte Esterase,Urine Negative (Negative); Mucus,Urine Rare /hpf; Nitrite,Urine Negative (Negative); PH, Urine 5.5 (5.0-8.0); Protein,Urine Negative (Negative); RBC,Urine 8 /hpf (0-5); Specific Gravity,Urine 1.015 (1.001-1.035); Urobilinogen,Urine <2.0 mg/dL (<2.0); WBC,Urine 3 /hpf (0-5)
[2023-06-29 08:23] VITALS: BP 129/89; PULSE 72; TEMP 98.1
== END 2023-06-29 08:07 | disposition home or self-care (01) ==
LOC: EC 06:34
DX: R33.9 Retention of urine, unspecified (principal); I10 Essential (primary) hypertension; I48.91 Unspecified atrial fibrillation; E78.5 Hyperlipidemia, unspecified; Z79.01 Long term (current) use of anticoagulants; Z79.899 Other long term (current) drug therapy
CPT/HCPCS: 51702; 51798; 81001; 99284

== ENCOUNTER 2023-06-29 18:45 | Emergency (ER) | payer BC ==
[2023-06-29 19:21] VITALS: BP 148/87; PULSE 72; RESP 16; TEMP 98.7
--- NOTE | 2023-06-29 19:22 | ED ---
General Adult HPI - General Chief complaint: Urogenital Stated complaint: Cath issue Time Seen by Provider: 06/29/23 19:21 Source: patient, RN notes reviewed Mode of arrival: ambulatory Limitations: no limitations - History of Present Illness Initial comments: 62-year-old male presents emergency department for romero catheter problem. Patient had a romero placed today for urinary retention. Patient states that he was laying in bed when the catheter came out. Patient had a Romero catheter placed today here because the patient was having urinary retention after recent surgery. He denies any other symptoms at this time. Denies abdominal pain, nausea, vomiting. - Related Data Home Medications Medication Instructions Recorded Confirmed Rosuvastatin [Crestor] 10 mg PO DAILY@1800 04/22/17 06/27/23 Ubidecarenone [Co Q-10] 200 mg PO DAILY 02/16/19 06/27/23 Carbidopa/Levodopa [Sinemet 25-100 1 each PO BID 03/09/21 06/27/23 mg Tablet] DULoxetine HCL [Cymbalta] 40 mg PO QAM 03/09/21 06/27/23 Losartan [Cozaar] 25 mg PO HS 03/09/21 06/27/23 Previous Rx's Medication Instructions Recorded oxyCODONE HCL [OxyIR] 5 mg PO Q6H PRN 3 Days #6 tab 06/27/23 Allergies Allergy/AdvReac Type Severity Reaction Status Date / Time No Known Allergies Allergy Verified 06/29/23 19:12 Review of Systems ROS Statement: Those systems with pertinent positive or pertinent negative responses have been documented in the HPI. ROS Other: All systems not noted in ROS Statement are negative. Past Medical History Past Medical History: Atrial Fibrillation, Hyperlipidemia, Hypertension, Musculoskeletal Disorder Additional Past Medical History / Comment(s): PARKINSON'S History of Any Multi-Drug Resistant Organisms: None Reported Past Surgical History: Cardiac Ablation, Heart Catheterization, Hernia Repair Additional Past Surgical History / Comment(s): COLONOSCOPY Past Anesthesia/Blood Transfusion Reactions: No Reported Reaction Past Psychological History: No Psychological Hx Reported Smoking Status: Never smoker Past Alcohol Use History: Occasional Past Drug Use History: None Reported - Past Family History Family Additional Family Medical History / Comment(s): Father with history of coronary artery disease status post CABG General Exam - General Exam Comments Initial Comments: Visual Physical Exam Vital signs reviewed General: Well-appearing, nontoxic, no acute distress. Head: Normocephalic, atraumatic Eyes: PERRLA, EOMI ENT: Airway patent Chest: Nonlabored breathing Skin: No visual rash, normal skin tone Neuro: Alert and oriented 3 Musculoskeletal: No gross abnormalities Limitations: no limitations General appearance: alert, in no apparent distress Head exam: Present: atraumatic, normocephalic, normal inspection Eye exam: Present: normal appearance, PERRL, EOMI. Absent: scleral icterus, conjunctival injection, periorbital swelling ENT exam: Present: normal exam, mucous membranes moist Neck exam: Present: normal inspection. Absent: tenderness, meningismus, lymphadenopathy Respiratory exam: Present: normal lung sounds bilaterally. Absent: respiratory distress, wheezes, rales, rhonchi, stridor Cardiovascular Exam: Present: regular rate, normal rhythm, normal heart sounds. Absent: systolic murmur, diastolic murmur, rubs, gallop, clicks GI/Abdominal exam: Present: soft, normal bowel sounds. Absent: distended, tenderness, guarding, rebound, rigid Back exam: Present: normal inspection. Absent: CVA tenderness (R), CVA tenderness (L) Neurological exam: Present: alert, oriented X3 Psychiatric exam: Present: normal affect, normal mood Skin exam: Present: warm, dry, intact, normal color. Absent: rash Course Vital Signs 06/29/23 19:10 Temperature 98.7 F Pulse Rate 72 Respiratory 16 Rate Blood Pressure 148/87 O2 Sat by Pulse 96 Oximetry Medical Decision Making - Medical Decision Making Quick note preformed by Alka Jordan PA-C Was pt. sent in by a medical professional or institution (QUINTIN Zeng, TIP STITCHER, urgent care, hospital, or [facility]...) When possible be specific @ -No Did you speak to anyone other than the patient for history (EMS, parent, family, police, friend...)? What history was obtained from this source @ -No Did you review nursing and triage notes (agree or disagree)? Why? @ -I reviewed and agree with nursing and triage notes Were old charts reviewed (outside hosp., previous admission, EMS record, old EKG, old radiological studies, urgent care reports/EKG's, [facility] records)? Report findings @ -No old charts were reviewed Differential Diagnosis (chest pain, altered mental status, abdominal pain women, abdominal pain men, vaginal bleeding, weakness, fever, dyspnea, syncope, headache, dizziness, GI bleed, back pain, seizure, CVA, palpatations, mental health, musculoskeletal)? @ -Retention, UTI, this list is not all-inclusive EKG interpreted by me (3pts min.). @ -None X-rays interpreted by me (1pt min.). @ -None done CT interpreted by me (1pt min.). @ -None done U/S interpreted by me (1pt. min.). @ -None done What testing was considered but not performed or refused? (CT, X-rays, U/S, labs)? Why? @ -UA considered, patient had this performed earlier today and has had no changes in symptoms. What meds were considered but not given or refused? Why? @ -None Did you discuss the management of the patient with other professionals (professionals i.e. , PA, TIP STITCHER, lab, RT, psych nurse, licensed clinical social worker, wind energy mechanic, teacher, administrative services officer, rifle case repairer)? Give summary @ -No Was smoking cessation discussed for >3mins.? @ -No Was critical care preformed (if so, how long)? @ -No Were there social determinants of health that impacted care today? How? (Homelessness, low income, unemployed, alcoholism, drug addiction, transportation, low edu. Level, literacy, decrease access to med. care, alf, rehab)? @ -No Was there de-escalation of care discussed even if they declined (Discuss DNR or withdrawal of care, Hospice)? DNR status @ -No What co-morbidities impacted this encounter? (DM, HTN, Smoking, COPD, CAD, Cancer, CVA, ARF, Chemo, Hep., AIDS, mental health diagnosis, sleep apnea, morbid obesity)? @ -None Was patient admitted / discharged? Hospital course, mention meds given and route, prescriptions, significant lab abnormalities, going to OR and other pertinent info. @ -Charge. Patient presented to the emergency department for Romero catheter replacement. Patient had displaced today but states that when at home he accidentally pulled it out. He denies any symptoms at this time including abdominal pain, nausea, vomiting, hematuria. A new Romero catheter was placed and drained well. Advised patient to follow-up with urology which he was given information for this morning. Undiagnosed new problem with uncertain prognosis? @ -No Drug Therapy requiring intensive monitoring for toxicity (Heparin, Nitro, Insu greg, Cardizem)? @ -No Were any procedures done? @ -No Diagnosis/symptom? @ -Urinary retention Acute, or Chronic, or Acute on Chronic? @ -acute Uncomplicated (without systemic symptoms) or Complicated (systemic symptoms)? @ -uncomplicated Side effects of treatment? @ -No Exacerbation, Progression, or Severe Exacerbation? @ -No Poses a threat to life or bodily function? How? (Chest pain, [place], [place], pneumonia, PE, COPD, DKA, ARF, appy, cholecystitis, CVA, Diverticulitis, Homicidal, Suicidal, threat to staff... and all critical care pts) @ -No Disposition Clinical Impression: Romero catheter problem Disposition: HOME SELF-CARE Condition: Stable Instructions (If sedation given, give patient instructions): Romero Catheter Placement and Care (ED) Additional Instructions: Please follow up with urology and your surgeon. Return to the emergency department for new or worsening symptoms. Is patient prescribed a controlled substance at d/c from ED?: No Referrals: Samy Bullard MD [Primary Care Provider] - 1-2 days
--- NOTE | 2023-06-29 19:35 | ED ---
General Adult HPI - General Chief complaint: Urogenital Stated complaint: Cath issue Time Seen by Provider: 06/29/23 19:13 Source: patient, RN notes reviewed Mode of arrival: ambulatory Limitations: no limitations - Related Data Home Medications Medication Instructions Recorded Confirmed Rosuvastatin [Crestor] 10 mg PO DAILY@1800 04/22/17 06/27/23 Ubidecarenone [Co Q-10] 200 mg PO DAILY 02/16/19 06/27/23 Carbidopa/Levodopa [Sinemet 25-100 1 each PO BID 03/09/21 06/27/23 mg Tablet] DULoxetine HCL [Cymbalta] 40 mg PO QAM 03/09/21 06/27/23 Losartan [Cozaar] 25 mg PO HS 03/09/21 06/27/23 Previous Rx's Medication Instructions Recorded oxyCODONE HCL [OxyIR] 5 mg PO Q6H PRN 3 Days #6 tab 06/27/23 Allergies Allergy/AdvReac Type Severity Reaction Status Date / Time No Known Allergies Allergy Verified 06/29/23 19:12 Review of Systems ROS Statement: Those systems with pertinent positive or pertinent negative responses have been documented in the HPI. ROS Other: All systems not noted in ROS Statement are negative. Past Medical History Past Medical History: Atrial Fibrillation, Hyperlipidemia, Hypertension, Musculoskeletal Disorder Additional Past Medical History / Comment(s): PARKINSON'S History of Any Multi-Drug Resistant Organisms: None Reported Past Surgical History: Cardiac Ablation, Heart Catheterization, Hernia Repair Additional Past Surgical History / Comment(s): COLONOSCOPY Past Anesthesia/Blood Transfusion Reactions: No Reported Reaction Past Psychological History: No Psychological Hx Reported Smoking Status: Never smoker Past Alcohol Use History: Occasional Past Drug Use History: None Reported - Past Family History Family Additional Family Medical History / Comment(s): Father with history of coronary artery disease status post CABG General Exam Limitations: no limitations Course Vital Signs 06/29/23 19:10 Temperature 98.7 F Pulse Rate 72 Respiratory 16 Rate Blood Pressure 148/87 O2 Sat by Pulse 96 Oximetry Disposition Referrals: Samy Bullard MD [Primary Care Provider] - 1-2 days
== END 2023-06-29 20:32 | disposition home or self-care (01) ==
LOC: EC 18:45
DX: T83.098A Other mechanical complication of other urinary catheter, initial encounter (principal); I48.91 Unspecified atrial fibrillation; E78.5 Hyperlipidemia, unspecified; I10 Essential (primary) hypertension; Z79.899 Other long term (current) drug therapy
CPT/HCPCS: 51702; 99283

== ENCOUNTER 2023-11-15 12:32 | Emergency (ER) | payer MEDICARE, OTHER ==
--- NOTE | 2023-11-15 13:57 | ED ---
General Adult HPI - General Chief complaint: Chest Pain Stated complaint: Chest pain Time Seen by Provider: 11/15/23 13:00 Source: patient, RN notes reviewed, old records reviewed Mode of arrival: ambulatory Limitations: no limitations - History of Present Illness Initial comments: This is a 63-year-old male who presents to the emergency department complaining of left-sided chest pain. Patient states the pain last for 2 to 3 seconds. Patient states its sharp pain. Patient denies any difficulty breathing or shortness of breath. Patient states this is occurred 4-5 times today. Patient has a history of atrial fibrillation and high cholesterol he also has Parkinson's disease. Patient states he had no nausea or vomiting. Patient denies any headache patient has numbness weakness. Patient currently is pain- free - Related Data Home Medications Medication Instructions Recorded Confirmed Rosuvastatin [Crestor] 10 mg PO HS 04/22/17 11/15/23 Losartan [Cozaar] 25 mg PO HS 03/09/21 11/15/23 Carbidopa-Levodopa ER 50-200Mg 1 tab PO TID@0730,1230,1730 11/15/23 11/15/23 [Sinemet CR 50-200 mg] Escitalopram [Lexapro] 20 mg PO DAILY 11/15/23 11/15/23 Ubidecarenone [Coenzyme Q10] 200 mg PO BID 11/15/23 11/15/23 Allergies Allergy/AdvReac Type Severity Reaction Status Date / Time No Known Allergies Allergy Verified 11/15/23 16:35 Review of Systems ROS Statement: Those systems with pertinent positive or pertinent negative responses have been documented in the HPI. ROS Other: All systems not noted in ROS Statement are negative. Past Medical History Past Medical History: Atrial Fibrillation, Hyperlipidemia, Hypertension, Musculoskeletal Disorder Additional Past Medical History / Comment(s): PARKINSON'S History of Any Multi-Drug Resistant Organisms: None Reported Past Surgical History: Cardiac Ablation, Heart Catheterization, Hernia Repair Additional Past Surgical History / Comment(s): COLONOSCOPY Past Anesthesia/Blood Transfusion Reactions: No Reported Reaction Past Psychological History: No Psychological Hx Reported Smoking Status: Never smoker Past Alcohol Use History: Occasional Past Drug Use History: None Reported - Past Family History Family Additional Family Medical History / Comment(s): Father with history of coronary artery disease status post CABG General Exam - General Exam Comments Initial Comments: GENERAL: Patient is well-developed and well-nourished. Patient is nontoxic and well- hydrated and is in no acute distress. ENT: Neck is soft and supple. No significant lymphadenopathy is noted. Oropharynx is clear. Moist mucous membranes. Neck has full range of motion without eliciting any pain. EYES: The sclera were anicteric and conjunctiva were pink and moist. Extraocular movements were intact and pupils were equal round and reactive to light. Eyelids were unremarkable. PULMONARY: Unlabored respirations. Good breath sounds bilaterally. No audible rales rh onchi or wheezing was noted. CARDIOVASCULAR: There is a regular rate and rhythm without any murmurs gallops or rubs. ABDOMEN: Soft and nontender with normal bowel sounds. SKIN: Skin is clear with no lesions or rashes and otherwise unremarkable. NEUROLOGIC: Patient is alert and oriented x3. Cranial nerves II through XII are grossly intact. Motor and sensory are also intact. Normal speech, volume and content. Symmetrical smile. MUSCULOSKELETAL: Normal extremities with adequate strength and full range of motion. LYMPHATICS: No significant lymphadenopathy is noted PSYCHIATRIC: Normal psychiatric evaluation. Limitations: no limitations Course Vital Signs 11/15/23 11/15/23 12:33 16:19 Temperature 98.3 F 97.6 F Pulse Rate 58 L 48 L Respiratory 20 17 Rate Blood Pressure 143/78 133/78 O2 Sat by Pulse 99 98 Oximetry Medical Decision Making - Medical Decision Making EKG is interpreted by myself read EKG shows sinus bradycardia 51 bpm parable 167 QRS is 101 QT interval 445 QTc is 421. Patient's EKG shows no ST segment ovation or depression. Was pt. sent in by a medical professional or institution (, PA, GRILL ATTENDANT, urgent care, hospital, or penitentiary...) When possible be specific @ -No Did you speak to anyone other than the patient for history (EMS, parent, family, police, friend...)? What history was obtained from this source @ -No Did you review nursing and triage notes (agree or disagree)? Why? @ -I reviewed and agree with nursing and triage notes Were old charts reviewed (outside hosp., previous admission, EMS record, old EKG, old radiological studies, urgent care reports/EKG's, penitentiary records)? Report findings @ -No old charts were reviewed Differential Diagnosis (chest pain, altered mental status, abdominal pain women, abdominal pain men, vaginal bleeding, weakness, fever, dyspnea, syncope, headache, dizziness, GI bleed, back pain, seizure, CVA, palpatations, mental health, musculoskeletal)? @ -Differential Chest Pain: Stable Angina, Unstable Angina, STEMI, NSTEMI Aortic Dissection, Pneumothorax, Musculoskeletal, Esophageal Spasm GERD, Cholecystitis, Pancreatitis, Zoster, this is not meant to be an all-inclusive list. EKG interpreted by me (3pts min.). @ -As above X-rays interpreted by me (1pt min.). @ -None done CT interpreted by me (1pt min.). @ -None done U/S interpreted by me (1pt. min.). @ -None done What testing was considered but not performed or refused? (CT, X-rays, U/S, labs)? Why? @ -None What meds were considered but not given or refused? Why? @ -None Did you discuss the management of the patient with other professionals (professionals i.e. , PA, GRILL ATTENDANT, lab, RT, psych nurse, director social service, slate roofer helper, teacher, ecological technical officer, insurance case manager)? Give summary @ -No Was smoking cessation discussed for >3mins.? @ -No Was critical care preformed (if so, how long)? @ -No Were there social determinants of health that impacted care today? How? (Homelessness, low income, unemployed, alcoholism, drug addiction, transportation, low edu. Level, literacy, decrease access to med. care, nursing home, rehab)? @ -No Was there de-escalation of care discussed even if they declined (Discuss DNR or withdrawal of care, Hospice)? DNR status @ -No What co-morbidities impacted this encounter? (DM, HTN, Smoking, COPD, CAD, Cancer, CVA, ARF, Chemo, Hep., AIDS, mental health diagnosis, sleep apnea, morbid obesity)? @ -None Was patient admitted / discharged? Hospital course, mention meds given and route, prescriptions, significant lab abnormalities, going to OR and other pertinent info. @ -Patient had no further chest pain while in the emergency department. Patient stated that his chest pain when he did have it was not severe and only lasted 2 to 3 seconds but because of his history of A-fib he was concerned so he came to the emergency department. Patient's lab work was all within normal range. Patient is in no distress and is willing to go home and follow-up as needed or return if there are any new or worsening symptoms Undiagnosed new problem with uncertain prognosis? @ -No Drug Therapy requiring intensive monitoring for toxicity (Heparin, Nitro, Insulin, Cardizem)? @ -No Were any procedures done? @ -No Diagnosis/symptom? @ -Atypical chest pain Acute, or Chronic, or Acute on Chronic? @ -Acute Uncomplicated (without systemic symptoms) or Complicated (systemic symptoms)? @ -Complicated Side effects of treatment? @ -No Exacerbation, Progression, or Severe Exacerbation? @ -No Poses a threat to life or bodily function? How? (Chest pain, [place], [place], pneumonia, PE, COPD, DKA, ARF, appy, cholecystitis, CVA, Diverticulitis, Homicidal, Suicidal, threat to staff... and all critical care pts) @ -No - Lab Data Result diagrams: 11/15/23 15:35 11/15/23 15:35 Lab Results 11/15/23 11/15/23 11/15/23 Range/Units 15:35 15:35 15:35 WBC 7.8 (3.8-10.6) k/uL RBC 5.19 (4.30-5.90) m/uL Hgb 15.5 (13.0-17.5) gm/dL Hct 48.7 (39.0-53.0) % MCV 93.8 (80.0-100.0) fL MCH 29.8 (25.0-35.0) pg MCHC 31.8 (31.0-37.0) g/dL RDW 13.0 (11.5-15.5) % Plt Count 223 (150-450) k/uL MPV 8.3 Neutrophils % 84 % Lymphocytes % 10 % Monocytes % 5 % Eosinophils % 1 % Basophils % 0 % Neutrophils # 6.5 (1.3-7.7) k/uL Lymphocytes # 0.8 L (1.0-4.8) k/uL Monocytes # 0.4 (0-1.0) k/uL Eosinophils # 0.1 (0-0.7) k/uL Basophils # 0.0 (0-0.2) k/uL PT 11.3 (10.0-12.5) sec INR 1.0 (<1.2) APTT 23.5 (22.0-30.0) sec Sodium 141 (137-145) mmol/L Potassium 4.6 (3.5-5.1) mmol/L Chloride 108 H (98-107) mmol/L Carbon Dioxide 28 (22-30) mmol/L Anion Gap 5 mmol/L BUN 13 (9-20) mg/dL Creatinine 0.70 (0.66-1.25) mg/dL Est GFR (CKD-EPI)AfAm >90 (>60 ml/min/1.73 sqM) Est GFR (CKD-EPI)NonAf >90 (>60 ml/min/1.73 sqM) Glucose 84 (74-99) mg/dL Calcium 9.5 (8.4-10.2) mg/dL Magnesium 1.8 (1.6-2.3) mg/dL Total Bilirubin 1.5 H (0.2-1.3) mg/dL AST 25 (17-59) U/L ALT 8 (4-49) U/L Alkaline Phosphatase 45 (38-126) U/L Troponin I (0.000-0.034) ng/mL Total Protein 6.7 (6.3-8.2) g/dL Albumin 4.5 (3.5-5.0) g/dL 11/15/23 Range/Units 15:35 WBC (3.8-10.6) k/uL RBC (4.30-5.90) m/uL Hgb (13.0-17.5) gm/dL Hct (39.0-53.0) % MCV (80.0-100.0) fL MCH (25.0-35.0) pg MCHC (31.0-37.0) g/dL RDW (11.5-15.5) % Plt Count (150-450) k/uL MPV Neutrophils % % Lymphocytes % % Monocytes % % Eosinophils % % Basophils % % Neutrophils # (1.3-7.7) k/uL Lymphocytes # (1.0-4.8) k/uL Monocytes # (0-1.0) k/uL Eosinophils # (0-0.7) k/uL Basophils # (0-0.2) k/uL PT (10.0-12.5) sec INR (<1.2) APTT (22.0-30.0) sec Sodium (137-145) mmol/L Potassium (3.5-5.1) mmol/L Chloride (98-107) mmol/L Carbon Dioxide (22-30) mmol/L Anion Gap mmol/L BUN (9-20) mg/dL Creatinine (0.66-1.25) mg/dL Est GFR (CKD-EPI)AfAm (>60 ml/min/1.73 sqM) Est GFR (CKD-EPI)NonAf (>60 ml/min/1.73 sqM) Glucose (74-99) mg/dL Calcium (8.4-10.2) mg/dL Magnesium (1.6-2.3) mg/dL Total Bilirubin (0.2-1.3) mg/dL AST (17-59) U/L ALT (4-49) U/L Alkaline Phosphatase (38-126) U/L Troponin I 0.017 (0.000-0.034) ng/mL Total Protein (6.3-8.2) g/dL Albumin (3.5-5.0) g/dL Disposition Clinical Impression: Atypical chest pain Disposition: HOME SELF-CARE Instructions (If sedation given, give patient instructions): Chest Pain (ED) Is patient prescribed a controlled substance at d/c from ED?: No Referrals: Samy Bullard MD [Primary Care Provider] - 1-2 days Time of Disposition: 17:05
--- NOTE | 2023-11-15 15:00 | XR ---
EXAMINATION TYPE: XR chest 2V DATE OF EXAM: 11/15/2023 COMPARISON: 12/04/2018 HISTORY: 63-year-old male with chest pain TECHNIQUE: PA and lateral views FINDINGS: The heart is upper limits of normal in size. Aorta and pulmonary vasculature within normal. Interstit ial prominence is similar. No consolidation or pleural effusion. IMPRESSION: Chronic changes, possible bronchitis or asthma. No acute change.
[2023-11-15 15:50] LABS: Basophils % (A) 0 %; Eosinophils # (A) 0.1 k/uL (0-0.7); Eosinophils % (A) 1 %; HCT 48.7 % (39.0-53.0); HGB 15.5 gm/dL (13.0-17.5); Lymphocytes # (A) 0.8 k/uL (1.0-4.8); Lymphocytes % (A) 10 %; MCH 29.8 pg (25.0-35.0); MCHC 31.8 g/dL (31.0-37.0); MCV 93.8 fL (80.0-100.0); Mean Platelet Volume 8.3; Monocytes # (A) 0.4 k/uL (0-1.0); Monocytes % (A) 5 %; Neutrophils # (A) 6.5 k/uL (1.3-7.7); Neutrophils % (A) 84 %; Platelet Count 223 k/uL (150-450); RBC 5.19 m/uL (4.30-5.90); WBC 7.8 k/uL (3.8-10.6)
[2023-11-15 16:00] LABS: ALT 8 U/L (4-49); AST 25 U/L (17-59); African American GFR (CKD) >90 (>60 ml/min/1.73 sqM); Albumin 4.5 g/dL (3.5-5.0); Alkaline Phosphatase 45 U/L (38-126); Anion Gap 5 mmol/L; Blood Urea Nitrogen 13 mg/dL (9-20); Calcium 9.5 mg/dL (8.4-10.2); Carbon Dioxide 28 mmol/L (22-30); Chloride 108 mmol/L (98-107); Glucose 84 mg/dL (74-99); Magnesium 1.8 mg/dL (1.6-2.3); Non-African American GFR(CKD) >90 (>60 ml/min/1.73 sqM); Potassium 4.6 mmol/L (3.5-5.1); Sodium 141 mmol/L (137-145); Total Bilirubin 1.5 mg/dL (0.2-1.3); Total Protein 6.7 g/dL (6.3-8.2)
[2023-11-15 16:04] LABS: Partial Thromboplastin Time 23.5 sec (22.0-30.0); Prothrombin Time 11.3 sec (10.0-12.5)
[2023-11-15 16:24] VITALS: BP 133/78
[2023-11-15 17:41] VITALS: PULSE 45; RESP 15; TEMP 98.1
== END 2023-11-15 17:40 | disposition home or self-care (01) ==
LOC: EC 12:32
DX: R07.89 Other chest pain (principal); R00.1 Bradycardia, unspecified
CPT/HCPCS: 36415; 71046; 80053; 83735; 84484; 85025; 85610; 85730; 93005; 99285